=== PATIENT | female | born 1985 | race Caucasian/White ===

== ENCOUNTER 2024-04-16 10:30 | Outpatient (RCR) | payer OTHER, SELFPAY ==
--- NOTE | 2023-12-19 17:46 | PT.OIE ---
Current Diagnoses Other specified conditions associated with female genital organs and menstrual cycle (12/19/23) Visit Care Team Role Provider Type Celia Boudreaux MD Attending Provider Non-Staff Family Provider Primary Care Provider Referring Provider Specialty: Medical Address: [address] [place] [address], [id number] Email: Physical Therapy Initial Evaluation PT-OP-A Visit Information Start: 11/28/23 18:14 Freq: Status: Active Protocol: Document 12/19/23 13:05 LRN (Rec: 12/19/23 17:45 LRN [id number]) Out-Patient Physical Therapy Visit Information Visit Information Visit Type Initial Evaluation Visit Start Time 13:05 Visit Stop Time 13:50 Visit Number 12/06 Evaluation Information Evaluation Date 12/19/23 Precautions Precautions Pt reported PF varicosity on R lower abdomen. PT-OP-B Current Condition Start: 11/28/23 18:14 Freq: Status: Active Protocol: Document 12/19/23 13:05 LRN (Rec: 12/19/23 17:45 LRN [id number]) Current Condition History of Current Condition Onset Date 2021 Current Complaints Heaviness/fullness in lower abdomen History of Current Condition Pt has had 3 vaginal births with last one in 2019 with son weighing 8#12 oz. She began to have a feeling of heaviness in her PF and lower abdomen in 2021. Currently, prior to menstration (4-5 days before menstration) she has a sharp pinch in the lower abdomen. Also having pressure pain with certain positions during intercourse, mainly with pt in hands/knees and spouse behind (pressure when fully inserted deep and with in/out movement ), She describes her discomfort as pressure like elephant sittting on her lower abdomen. Running or jumping creates heaviness. Prior Treatments and Tests Pt reported ultrasound imaging from [facility] showed varicose veins in outside of vaginal canal in R lower quadrant. Developmental History Developmental History 3 vaginal births (2011, 2014, 2018), Cervical conization in 2008 - negative for infection. Treatment Goals Patient/Caregiver Goals Pt goal is to: Decrease/relieve pressure pain with menstration. Decrease/relieve pressure feeling with intercourse. Decrease/relieve sense of heaviness. 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 PT-OP-C Subjective Start: 11/28/23 18:14 Freq: Status: Active Protocol: Document 12/19/23 13:05 LRN (Rec: 12/19/23 17:45 LRN [id number]) Patient Questionnaires Pelvic Pain and Urgency/Frequency Patient Symptom Scale Pelvic Pain Score 6 PT-OP-I Pelvic Floor Start: 11/28/23 18:14 Freq: Status: Active Protocol: Document 12/19/23 13:05 LRN (Rec: 12/19/23 17:45 LRN [id number]) Pelvic Floor Assessment Urine Other Urinary Symptoms No urinary symptoms Bowel Other Bowel Symptoms Normal Bowels. Pelvic Clock Pelvic Clock 12-3 Tenderness,Tightness Pelvic Clock 3-6 Tenderness,Tightness Pelvic Clock Other Tender at 8-10 O'Clock. Prolapse Prolapse Comments Not able to visualize due to pt on period during evaluation . Perineal Descent Resting Present Bearing Absent Contraction Ability Manual Muscle Testing Left 3 Manual Muscle Testing Right 3 Manual Muscle Testing Anterior 3 Manual Muscle Testing Posterior 2 Muscle Endurance (Seconds) 10 Number of Quick Contractions In 10 4 Seconds Comments Pelvic Floor Comments Pt not able to let go of PF contraction. Abdominal tihgtness and pain at R side of uterus and lower R abdomen. PT-OP-J Posture/Palpation/Skin Start: 11/28/23 18:14 Freq: Status: Active Protocol: Document 12/19/23 13:05 LRN (Rec: 12/19/23 17:45 LRN [id number]) Posture Evaluation Position Standing L-Spine Posture Increased Lordosis,Shifted Right Shoulder Posture (L) Forward,(R) Forward,(L) Elevated Pelvis Posture (R) Rotated Posterior Comments Posture Comments Decrease thoracic curve, neutral pelvis, C-curve with apex on R at mid thoracic level. PT-OP-K Range of Motion Start: 11/28/23 18:14 Freq: Status: Active Protocol: Document 12/19/23 13:05 LRN (Rec: 12/19/23 17:45 LRN [id number]) Lumbar Spine Range of Motion Lumbar Spine Active Degrees Testing Position Standing Flexion 83 Extension 5 Rotation Left 30 Rotation Right 40 Lateral Flexion Left 13 Lateral Flexion Right 10 Comments Trunk AROM: Flexion is 83 deg ?s with 50 deg?s hip flexion, Trunk extension is 5 deg?s with 10 deg?s hip extension. Hip Goniometric Range of Motion Hip Right Passive Internal Rotation 35 External Rotation 65 Comments Mildy + Asa Test Left Passive Internal Rotation 25 External Rotation 50 Comments + Asa test PT-OP-M Strength Start: 11/28/23 18:14 Freq: Status: Active Protocol: Document 12/19/23 13:05 LRN (Rec: 12/19/23 17:45 LRN [id number]) Trunk Strength Trunk Manual Muscle Testing Core Stabilization Decreased core stability with MMT of hips, worse with flex/ ext testing. Hip Strength Hip Manual Muscle Testing Right Comments Strength is 5/5 Left External Rotation 3+ Fair+ Comments Strength is 5/5 except as indicated above. PT-OP-Q Treatments Start: 11/28/23 18:14 Freq: Status: Active Protocol: Document 12/19/23 13:05 LRN (Rec: 12/19/23 17:45 LRN [id number]) Self-Care/Home Management Treatment Education Other Education Discussed results of evaluation, goals, and plan of care (POC). Pt agreeable to goals and POC. PT-OP-T Assessment and Plan Start: 11/28/23 18:14 Freq: Status: Active Protocol: Document 12/19/23 13:05 LRN (Rec: 12/19/23 17:45 LRN [id number]) Physical Therapy Assessment Rehab Potential Rehabilitation Potential Good Evaluation Complexity Number of Personal Factors/Comorbidities 1-2 Number of Body Systems Impaired 4 or More Clinical Presentation at Evaluation Evolving Impairments Impairments Activity Tolerance,Edema,Pain, ROM,Soft Tissue Mobility, Strength,Transfers Goals Three Impairment Pressure pain prior to menstration and with intercourse. Short Term Goal (STG) Pt will be educated in modified positioning to help decrease/relieve pressure feeling with intercourse. STG Duration 4 wks-01/16/24 [facility] Goal (LTG) Improve abdominal mobility to decrease/relieve pressure pain with menstration. LTG Duration 8 wks-02/13/24 Two Impairment Feeling of heaviness in PF Short Term Goal (STG) Pt will be educated in core pressure management with transfers, ADLs and exercise. STG Duration 4 wks-01/16/24 [facility] Goal (LTG) Decrease/relieve sense of heaviness from 2/10 to 0-1/10. LTG Duration 8 wks-02/13/24 One Impairment Lacks appropriate HEP Short Term Goal (STG) Pt will be educated in HEP: thoracic mob ex's and abdominal stretching. STG Duration 4 wks-01/16/24 [facility] Goal (LTG) Pt will be independent in a self care HEP of PF/hip stretches and self STM. LTG Duration 8 wks-02/13/24 Assessment Summary Assessment Pt is a 38 yo female who presents with lower abdominal and PF pressure pain, possible pelvic congestion. Pain present with premenstration and with intercourse in hands/ knees position. She has had a Cervical conization in 2008 and her pain with palpation is in this area; therefore scar tissue may be a factor in her pain and onset of heaviness in the lower abdomen. She is tight and tender in PF at 3 O' clock and 8-10 O'clock, and has tight L hip (IF/ER/flexors ) and trunk rot/flex. There is a mechanical changes of the lumbar and thoracic spine. She is not able to relax her PF quickly; therefore EMG biofeedback may be helpful to decrease PF tone and improve circulation. The pt will benefit from skilled physical therapy to achieve the above stated goals. Physical Therapy Plan Frequency and Duration Frequency of Treatment 1x/Week Duration of treatment (weeks) 8 Plan of Care Start Date 12/19/23 Plan of Care End Date 02/13/24 Therapeutic Interventions Therapeutic Interventions Home Exercise Program,Joint Mobilizations,Manual Therapy, Self-Care/Home Management,Soft Tissue Mobilization,Taping, Therapeutic Activities, Therapeutic Exercises Modalities Biofeedback,Electric Stimulation Next Visit Focus/Plan Next Note Type Treatment Note Next Visit Plan (Caution: Possble PF Varicosity on R lower abdomen) Next: Assess prolapse when able to visualize. Vemg biofeedback assessment and possible stim to improve circulation and reduce pressure. Pt to start ex ( walking program). Manual: PF, Abdomen and lower abdomen, Hips (IR L>R), Uterus/Bladder, Mob & self mob for R posture rotated innominate dysfunction. Educ: Coordination of breath with transfer/ADLs, ?self stretching of PF, hot/cold pain management. Ex: Deep Breathing, Stretches hip/abdomen, PF
--- NOTE | 2023-12-19 17:47 | PT.OPPOC ---
Physical, Occupational & Speech Therapy At [facility] Current Diagnoses Other specified conditions associated with female genital organs and menstrual cycle (12/19/23) Visit Care Team Role Provider Type Celia Boudreaux MD Attending Provider Non-Staff Family Provider Primary Care Provider Referring Provider Specialty: Medical Address: [address] [place] [address], [id number] Email: Plan Of Care PT-OP-T Assessment and Plan Start: 11/28/23 18:14 Freq: Status: Active Protocol: Document 12/19/23 13:05 LRN (Rec: 12/19/23 17:45 LRN [id number]) Physical Therapy Assessment Rehab Potential Rehabilitation Potential Good Evaluation Complexity Number of Personal Factors/Comorbidities 1-2 Number of Body Systems Impaired 4 or More Clinical Presentation at Evaluation Evolving Impairments Impairments Activity Tolerance,Edema,Pain, ROM,Soft Tissue Mobility, Strength,Transfers Goals Three Impairment Pressure pain prior to menstration and with intercourse. Short Term Goal (STG) Pt will be educated in modified positioning to help decrease/relieve pressure feeling with intercourse. 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 LTG Duration 8 wks-02/13/24 Two Impairment Feeling of heaviness in PF Short Term Goal (STG) Pt will be educated in core pressure management with transfers, ADLs and exercise. STG Duration 4 wks-01/16/24 Automotive Specialty Technician Goal (LTG) Decrease/relieve sense of heaviness from 2/10 to 0-1/10. LTG Duration 8 wks-02/13/24 One Impairment Lacks appropriate HEP Short Term Goal (STG) Pt will be educated in HEP: thoracic mob ex's and abdominal stretching. STG Duration 4 wks-01/16/24 Jail Goal (LTG) Pt will be independent in a self care HEP of PF/hip stretches and self STM. LTG Duration 8 wks-02/13/24 Assessment Summary Assessment Pt is a 38 yo female who presents with lower abdominal and PF pressure pain, possible pelvic congestion. Pain present with premenstration and with intercourse in hands/ knees position. She has had a Cervical conization in 2008 and her pain with palpation is in this area; therefore scar tissue may be a factor in her pain and onset of heaviness in the lower abdomen. She is tight and tender in PF at 3 O' clock and 8-10 O'clock, and has tight L hip (IF/ER/flexors ) and trunk rot/flex. There is a mechanical changes of the lumbar and thoracic spine. She is not able to relax her PF quickly; therefore EMG biofeedback may be helpful to decrease PF tone and improve circulation. The pt will benefit from skilled physical therapy to achieve the above stated goals. Physical Therapy Plan Frequency and Duration Frequency of Treatment 1x/Week Duration of treatment (weeks) 8 Plan of Care Start Date 12/19/23 Plan of Care End Date 02/13/24 Therapeutic Interventions Therapeutic Interventions Home Exercise Program,Joint Mobilizations,Manual Therapy, Self-Care/Home Management,Soft Tissue Mobilization,Taping, Therapeutic Activities, Therapeutic Exercises Modalities Biofeedback,Electric Stimulation Next Visit Focus/Plan Next Note Type Treatment Note Next Visit Plan (Caution: Possble PF Varicosity on R lower abdomen) Next: Assess prolapse when able to visualize. Vemg biofeedback assessment and possible stim to improve circulation and reduce pressure. Pt to start ex ( walking program). Manual: PF, Abdomen and lower abdomen, Hips (IR L>R), Uterus/Bladder, Mob & self mob for R posture rotated innominate dysfunction. Educ: Coordination of breath with transfer/ADLs, ?self stretching of PF, hot/cold pain management. Ex: Deep Breathing, Stretches hip/abdomen, PF Plan of Care Dates Plan of Care Start Date 12/19/23 Plan of Care End Date 02/13/24 Electronically Signed by: Norma Hurtado, PT 12/19/23 2526 If you are in agreement with this Plan of Care, please return a signed and dated copy. I have reviewed this Plan of Care and certify that the skilled therapy services above are required to meet the patient?s needs. Physician Signature Date Printed Name and Credentials Clinical Instructor Signature Printed Name and Credentials
--- NOTE | 2023-12-26 13:24 | PT.OTN ---
Current Diagnoses Other specified conditions associated with female genital organs and menstrual cycle (12/26/23) Physical Therapy Treatment Note PT-OP-A Visit Information Start: 11/28/23 18:14 Freq: Status: Active Protocol: Document 12/26/23 09:05 LRN (Rec: 12/26/23 09:49 LRN [id number]) Out-Patient Physical Therapy Visit Information Visit Information Visit Type Treatment Note Visit Start Time 09:05 Visit Stop Time 09:43 Visit Number 01/06 Evaluation Information Evaluation Date 12/19/23 Precautions Precautions Pt reported PF varicosity on R lower abdomen. PT-OP-B Current Condition Start: 11/28/23 18:14 Freq: Status: Active Protocol: Document 12/19/23 13:05 LRN (Rec: 12/19/23 17:45 LRN [id number]) Current Condition History of Current Condition Onset Date 2021 Current Complaints Heaviness/fullness in lower abdomen History of Current Condition Pt has had 3 vaginal births with last one in 2019 with son weighing 8#12 oz. She began to have a feeling of heaviness in her PF and lower abdomen in 2021. Currently, prior to menstration (4-5 days before menstration) she has a sharp pinch in the lower abdomen. Also having pressure pain with certain positions during intercourse, mainly with pt in hands/knees and spouse behind (pressure when fully inserted deep and with in/out movement ), She describes her discomfort as pressure like elephant sittting on her lower abdomen. Running or jumping creates heaviness. Prior Treatments and Tests Pt reported ultrasound imaging from [facility] showed varicose veins in outside of vaginal canal in R lower quadrant. Developmental History Developmental History 3 vaginal births (2011, 2014, 2018), Cervical conization in 2008 - negative for infection. Treatment Goals Patient/Caregiver Goals Pt goal is to: Decrease/relieve pressure pain with menstration. Decrease/relieve pressure feeling with intercourse. Decrease/relieve sense of heaviness. 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 PT-OP-C Subjective Start: 11/28/23 18:14 Freq: Status: Active Protocol: Document 12/26/23 09:05 LRN (Rec: 12/26/23 09:49 LRN [id number]) OP-PT Subjective Patient Comments Patient Comments Has noticed weak on L side with lunges and squats and compensates to keep from falling over. PT-OP-I Pelvic Floor Start: 11/28/23 18:14 Freq: Status: Active Protocol: Document 12/26/23 09:05 LRN (Rec: 12/26/23 09:49 LRN [id number]) Pelvic Floor Assessment SEMG (uV) Baseline 2.5 Quick Contraction 12.2 10 Second Contraction 8.8 Recruitment Pattern Good Relaxation Poor/Slow Holding Poor/Slow Stability of Hold Poor/Slow SEMG Stability of Rest Good Comments Pelvic Floor Comments Pt has grade 2 cystocele with drop of urethra. Quick Flicks: 10 reps strength (uV's): avg work 12.2, avg rest 8.8. 20 reps strength (uV's): avg work 12.6, avg rest 9.0. Long Holds: 15 reps strength (uV's): avg work 8.8, avg rest 3.1. 20 reps strength (uV's): avg work 8.5, avg rest 2.9. PT-OP-J Posture/Palpation/Skin Start: 11/28/23 18:14 Freq: Status: Active Protocol: Document 12/19/23 13:05 LRN (Rec: 12/19/23 17:45 LRN [id number]) Posture Evaluation Position Standing L-Spine Posture Increased Lordosis,Shifted Right Shoulder Posture (L) Forward,(R) Forward,(L) Elevated Pelvis Posture (R) Rotated Posterior Comments Posture Comments Decrease thoracic curve, neutral pelvis, C-curve with apex on R at mid thoracic level. PT-OP-K Range of Motion Start: 11/28/23 18:14 Freq: Status: Active Protocol: Document 12/19/23 13:05 LRN (Rec: 12/19/23 17:45 LRN [id number]) Lumbar Spine Range of Motion Lumbar Spine Active Degrees Testing Position Standing Flexion 83 Extension 5 Rotation Left 30 Rotation Right 40 Lateral Flexion Left 13 Lateral Flexion Right 10 Comments Trunk AROM: Flexion is 83 deg ?s with 50 deg?s hip flexion, Trunk extension is 5 deg?s with 10 deg?s hip extension. Hip Goniometric Range of Motion Hip Right Passive Internal Rotation 35 External Rotation 65 Comments Mildy + Asa Test Left Passive Internal Rotation 25 External Rotation 50 Comments + Asa test PT-OP-M Strength Start: 11/28/23 18:14 Freq: Status: Active Protocol: Document 12/19/23 13:05 LRN (Rec: 12/19/23 17:45 LRN [id number]) Trunk Strength Trunk Manual Muscle Testing Core Stabilization Decreased core stability with MMT of hips, worse with flex/ ext testing. Hip Strength Hip Manual Muscle Testing Right Comments Strength is 5/5 Left External Rotation 3+ Fair+ Comments Strength is 5/5 except as indicated above. PT-OP-Q Treatments Start: 11/28/23 18:14 Freq: Status: Active Protocol: Document 12/26/23 09:05 LRN (Rec: 12/26/23 09:49 LRN [id number]) Therapeutic Exercises Supine Exercises PF 10 SH contractions Supine Exercise Name 10 SH Long hold contraction Comments See PF assessment. Cued pt as to her hold time and relax time. PF Quick Contractions Supine Exercise Name 2 SH Quick Contractions Comments See PF assessment Cued pt as to her hold time and relax time. PF at rest Supine Exercise Name PF @ rest Comments Extra time taken for relaxation. See PF assessment Self-Care/Home Management Treatment Education Patient Education Home Exercise Program Other Education Briefly discussed benefit of PF strengthening with intercourse, but she will need stretching of PF first to make it more comfortable during activity. Activities Self-Care/Home Management Activities Issued & reviewed HEP: Aquilesgels Long holds, also Quick Flicks and Aggrevators. PT-OP-T Assessment and Plan Start: 11/28/23 18:14 Freq: Status: Active Protocol: Document 12/26/23 09:05 LRN (Rec: 12/26/23 09:49 LRN [id number]) Physical Therapy Assessment Goals Three Impairment Pressure pain prior to menstration and with intercourse. Short Term Goal (STG) Pt will be educated in modified positioning to help decrease/relieve pressure feeling with intercourse. 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 LTG Duration 8 wks-02/13/24 Two Impairment Feeling of heaviness in PF Short Term Goal (STG) Pt will be educated in core pressure management with transfers, ADLs and exercise. STG Duration 4 wks-01/16/24 Custodial Goal (LTG) Decrease/relieve sense of heaviness from 2/10 to 0-1/10. LTG Duration 8 wks-02/13/24 One Impairment Lacks appropriate HEP Short Term Goal (STG) Pt will be educated in HEP: thoracic mob ex's and abdominal stretching. STG Duration 4 wks-01/16/24 Custodial Goal (LTG) Pt will be independent in a self care HEP of PF/hip stretches and self STM. 12/26/23: HEP: KEgels: focus on long hold and relaxation LTG Duration 8 wks-02/13/24 progressed 01/17 Assessment Summary Assessment 38 yo female who presents with lower abdominal and PF pressure pain, possible pelvic congestion. Pain present with premenstration and with intercourse in hands/knees position. She has grade 2 cystocele with drop of urethra . Quick contractions she has high resting tone. Long holds shows decreased endurance after 2nd contraction. Physical Therapy Plan Frequency and Duration Frequency of Treatment 1x/Week Duration of treatment (weeks) 8 Plan of Care Start Date 12/19/23 Plan of Care End Date 02/13/24 Next Visit Focus/Plan Next Note Type Treatment Note Next Visit Plan (Caution: Possble PF Varicosity on R lower abdomen) Next: Vemg possible to improve circulation and reduce pressure (no stim), or start long hold strengthening and PF relaxation w/wand stretching for HEP. Pt to start ex ( walking program). Educ: Coordination of breath with transfer/ADLs, ?self stretching of PF, hot/cold pain management. Ex: Deep Breathing, Stretches hip/abdomen, PF Manual: PF, Abdomen and lower abdomen (Caution: Possble PF Varicosity on R lower abdomen ) , Hips (IR L>R), Uterus/ Bladder, Mob & self mob for R posture rotated innominate dysfunction.
--- NOTE | 2024-01-09 15:59 | PT.OTN ---
Current Diagnoses Other specified conditions associated with female genital organs and menstrual cycle (01/09/24) Physical Therapy Treatment Note PT-OP-A Visit Information Start: 11/28/23 18:14 Freq: Status: Active Protocol: Document 01/09/24 09:50 LRN (Rec: 01/09/24 10:31 LRN [id number]) Out-Patient Physical Therapy Visit Information Visit Information Visit Type Treatment Note Visit Start Time 09:50 Visit Stop Time 10:28 Visit Number 3/ Evaluation Information Evaluation Date 12/19/23 Precautions Precautions Pt reported PF varicosity on R lower abdomen. PT-OP-B Current Condition Start: 11/28/23 18:14 Freq: Status: Active Protocol: Document 12/19/23 13:05 LRN (Rec: 12/19/23 17:45 LRN [id number]) Current Condition History of Current Condition Onset Date 2021 Current Complaints Heaviness/fullness in lower abdomen History of Current Condition Pt has had 3 vaginal births with last one in 2019 with son weighing 8#12 oz. She began to have a feeling of heaviness in her PF and lower abdomen in 2021. Currently, prior to menstration (4-5 days before menstration) she has a sharp pinch in the lower abdomen. Also having pressure pain with certain positions during intercourse, mainly with pt in hands/knees and spouse behind (pressure when fully inserted deep and with in/out movement ), She describes her discomfort as pressure like elephant sittting on her lower abdomen. Running or jumping creates heaviness. Prior Treatments and Tests Pt reported ultrasound imaging from [facility] showed varicose veins in outside of vaginal canal in R lower quadrant. Developmental History Developmental History 3 vaginal births (2011, 2014, 2018), Cervical conization in 2008 - negative for infection. Treatment Goals Patient/Caregiver Goals Pt goal is to: Decrease/relieve pressure pain with menstration. Decrease/relieve pressure feeling with intercourse. Decrease/relieve sense of heaviness. 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 PT-OP-C Subjective Start: 11/28/23 18:14 Freq: Status: Active Protocol: Document 01/09/24 09:50 LRN (Rec: 01/09/24 10:31 LRN [id number]) OP-PT Subjective Patient Comments Patient Comments No change PT-OP-I Pelvic Floor Start: 11/28/23 18:14 Freq: Status: Active Protocol: Document 12/26/23 09:05 LRN (Rec: 12/26/23 09:49 LRN [id number]) Pelvic Floor Assessment SEMG (uV) Baseline 2.5 Quick Contraction 12.2 10 Second Contraction 8.8 Recruitment Pattern Good Relaxation Poor/Slow Holding Poor/Slow Stability of Hold Poor/Slow SEMG Stability of Rest Good Comments Pelvic Floor Comments Pt has grade 2 cystocele with drop of urethra. Quick Flicks: 10 reps strength (uV's): avg work 12.2, avg rest 8.8. 20 reps strength (uV's): avg work 12.6, avg rest 9.0. Long Holds: 15 reps strength (uV's): avg work 8.8, avg rest 3.1. 20 reps strength (uV's): avg work 8.5, avg rest 2.9. PT-OP-J Posture/Palpation/Skin Start: 11/28/23 18:14 Freq: Status: Active Protocol: Document 12/19/23 13:05 LRN (Rec: 12/19/23 17:45 LRN [id number]) Posture Evaluation Position Standing L-Spine Posture Increased Lordosis,Shifted Right Shoulder Posture (L) Forward,(R) Forward,(L) Elevated Pelvis Posture (R) Rotated Posterior Comments Posture Comments Decrease thoracic curve, neutral pelvis, C-curve with apex on R at mid thoracic level. PT-OP-K Range of Motion Start: 11/28/23 18:14 Freq: Status: Active Protocol: Document 12/19/23 13:05 LRN (Rec: 12/19/23 17:45 LRN [id number]) Lumbar Spine Range of Motion Lumbar Spine Active Degrees Testing Position Standing Flexion 83 Extension 5 Rotation Left 30 Rotation Right 40 Lateral Flexion Left 13 Lateral Flexion Right 10 Comments Trunk AROM: Flexion is 83 deg ?s with 50 deg?s hip flexion, Trunk extension is 5 deg?s with 10 deg?s hip extension. Hip Goniometric Range of Motion Hip Right Passive Internal Rotation 35 External Rotation 65 Comments Mildy + Asa Test Left Passive Internal Rotation 25 External Rotation 50 Comments + Asa test PT-OP-M Strength Start: 11/28/23 18:14 Freq: Status: Active Protocol: Document 12/19/23 13:05 LRN (Rec: 12/19/23 17:45 LRN [id number]) Trunk Strength Trunk Manual Muscle Testing Core Stabilization Decreased core stability with MMT of hips, worse with flex/ ext testing. Hip Strength Hip Manual Muscle Testing Right Comments Strength is 5/5 Left External Rotation 3+ Fair+ Comments Strength is 5/5 except as indicated above. PT-OP-Q Treatments Start: 11/28/23 18:14 Freq: Status: Active Protocol: Document 01/09/24 09:50 LRN (Rec: 01/09/24 10:31 LRN [id number]) Therapeutic Exercises Supine Exercises PF 10 SH contractions Supine Exercise Name 10 SH Long hold contraction Reps/Minutes 11 Comments See PF assessment. Cued pt as to her hold time and relax time. PF Quick Contractions Supine Exercise Name 2 SH Quick Contractions Reps/Minutes 7' Comments See PF assessment Cued pt as to her hold time and relax time. PF at rest Supine Exercise Name PF @ rest Reps/Minutes 5' Comments Extra time taken for relaxation. See PF assessment Neuro Re-Education Treatment Other Activities Vemg Aquilesgels Details 10 SH long hold re-ed Reps/Duration 15' Comments Visual and verbal feedback for maintaining PF hold and getting quick relaxation after contraction. PT-OP-T Assessment and Plan Start: 11/28/23 18:14 Freq: Status: Active Protocol: Document 01/09/24 09:50 LRN (Rec: 01/09/24 10:31 LRN [id number]) Physical Therapy Assessment Goals Three Impairment Pressure pain prior to menstration and with intercourse. Short Term Goal (STG) Pt will be educated in modified positioning to help decrease/relieve pressure feeling with intercourse. STG Duration 4 wks-01/16/24 Data Abstractor Goal (LTG) Improve abdominal mobility to decrease/relieve pressure pain with menstration. LTG Duration 8 wks-02/13/24 Two Impairment Feeling of heaviness in PF Short Term Goal (STG) Pt will be educated in core pressure management with transfers, ADLs and exercise. STG Duration 4 wks-01/16/24 Data Abstractor Goal (LTG) Decrease/relieve sense of heaviness from 2/10 to 0-1/10. LTG Duration 8 wks-02/13/24 One Impairment Lacks appropriate HEP Short Term Goal (STG) Pt will be educated in HEP: thoracic mob ex's and abdominal stretching. STG Duration 4 wks-01/16/24 Nursing Home Goal (LTG) Pt will be independent in a self care HEP of PF/hip stretches and self STM. 12/26/23: HEP: KEgels: focus on long hold and relaxation LTG Duration 8 wks-02/13/24 progressed 01/17 Assessment Summary Assessment 38 yo female with lower abdominal and PF pressure pain , possible pelvic congestion. Pain present with premenstration and with intercourse (specifically hands/knees). She has grade 2 cystocele with drop of urethra. Per Vemg neuro-allyn, pt able to perform a slow long hold contraction with weakening after 5 secs, and by 20 reps not able to hold 2 secs; initial forceful contraction is not able to hold for 2 secs. Pt is getting a low resting tone at end of 2.3uV's after 20 reps. Physical Therapy Plan Frequency and Duration Frequency of Treatment 1x/Week Duration of treatment (weeks) 8 Plan of Care Start Date 12/19/23 Plan of Care End Date 02/13/24 Next Visit Focus/Plan Next Note Type Treatment Note Next Visit Plan (Caution: Possble PF Varicosity on R lower abdomen) Next: No Stim, only Neuro- allyn: Vemg possible to improve circulation and reduce pressure, or start long hold strengthening and PF relaxation w/wand stretching for HEP. Pt to start ex ( walking program). Educ: Core pressure mgmt w/ coordination of breath with transfer/ADLs, ?self stretching of PF, hot/cold pain management. Ex: HEP: thoracic mob ex's and abdominal stretching, Deep Breathing, Stretches hip/ abdomen, PF. Manual: PF, Abdomen and lower abdomen (Caution: Possble PF Varicosity on R lower abdomen ) , Hips (IR L>R), Uterus/ Bladder, Mob & self mob for R posture rotated innominate dysfunction.
--- NOTE | 2024-01-09 16:03 | PT.OTN ---
Current Diagnoses Other specified conditions associated with female genital organs and menstrual cycle (01/09/24) Physical Therapy Treatment Note PT-OP-A Visit Information Start: 11/28/23 18:14 Freq: Status: Active Protocol: Document 01/09/24 09:50 LRN (Rec: 01/09/24 10:31 LRN [id number]) Out-Patient Physical Therapy Visit Information Visit Information Visit Type Treatment Note Visit Start Time 09:50 Visit Stop Time 10:28 Visit Number 3/ Evaluation Information Evaluation Date 12/19/23 Precautions Precautions Pt reported PF varicosity on R lower abdomen. PT-OP-B Current Condition Start: 11/28/23 18:14 Freq: Status: Active Protocol: Document 12/19/23 13:05 LRN (Rec: 12/19/23 17:45 LRN [id number]) Current Condition History of Current Condition Onset Date 2021 Current Complaints Heaviness/fullness in lower abdomen History of Current Condition Pt has had 3 vaginal births with last one in 2019 with son weighing 8#12 oz. She began to have a feeling of heaviness in her PF and lower abdomen in 2021. Currently, prior to menstration (4-5 days before menstration) she has a sharp pinch in the lower abdomen. Also having pressure pain with certain positions during intercourse, mainly with pt in hands/knees and spouse behind (pressure when fully inserted deep and with in/out movement ), She describes her discomfort as pressure like elephant sittting on her lower abdomen. Running or jumping creates heaviness. Prior Treatments and Tests Pt reported ultrasound imaging from [facility] showed varicose veins in outside of vaginal canal in R lower quadrant. Developmental History Developmental History 3 vaginal births (2011, 2014, 2018), Cervical conization in 2008 - negative for infection. Treatment Goals Patient/Caregiver Goals Pt goal is to: Decrease/relieve pressure pain with menstration. Decrease/relieve pressure feeling with intercourse. Decrease/relieve sense of heaviness. 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 PT-OP-C Subjective Start: 11/28/23 18:14 Freq: Status: Active Protocol: Document 01/09/24 09:50 LRN (Rec: 01/09/24 10:31 LRN [id number]) OP-PT Subjective Patient Comments Patient Comments No change PT-OP-I Pelvic Floor Start: 11/28/23 18:14 Freq: Status: Active Protocol: Document 01/09/24 09:50 LRN (Rec: 01/09/24 16:03 LRN [id number]) Pelvic Floor Assessment SEMG (uV) Baseline 1.6 Quick Contraction 10.5 10 Second Contraction 9.1 Recruitment Pattern Good Relaxation Fair Holding Fair Stability of Hold Fair SEMG Stability of Rest Fair Comments Pelvic Floor Comments Quick Flicks: 10 reps strength (uV's): avg work 10.5, avg rest 7.1. 20 reps strength (uV's): avg work 10.1, avg rest 9.2. Long Holds: 10 reps strength (uV's): avg work 9.1, avg rest 2.7. 20 reps strength (uV's): avg work 8.9, avg rest 2.3. PT-OP-J Posture/Palpation/Skin Start: 11/28/23 18:14 Freq: Status: Active Protocol: Document 12/19/23 13:05 LRN (Rec: 12/19/23 17:45 LRN [id number]) Posture Evaluation Position Standing L-Spine Posture Increased Lordosis,Shifted Right Shoulder Posture (L) Forward,(R) Forward,(L) Elevated Pelvis Posture (R) Rotated Posterior Comments Posture Comments Decrease thoracic curve, neutral pelvis, C-curve with apex on R at mid thoracic level. PT-OP-K Range of Motion Start: 11/28/23 18:14 Freq: Status: Active Protocol: Document 12/19/23 13:05 LRN (Rec: 12/19/23 17:45 LRN [id number]) Lumbar Spine Range of Motion Lumbar Spine Active Degrees Testing Position Standing Flexion 83 Extension 5 Rotation Left 30 Rotation Right 40 Lateral Flexion Left 13 Lateral Flexion Right 10 Comments Trunk AROM: Flexion is 83 deg ?s with 50 deg?s hip flexion, Trunk extension is 5 deg?s with 10 deg?s hip extension. Hip Goniometric Range of Motion Hip Right Passive Internal Rotation 35 External Rotation 65 Comments Mildy + Asa Test Left Passive Internal Rotation 25 External Rotation 50 Comments + Asa test PT-OP-M Strength Start: 11/28/23 18:14 Freq: Status: Active Protocol: Document 12/19/23 13:05 LRN (Rec: 12/19/23 17:45 LRN [id number]) Trunk Strength Trunk Manual Muscle Testing Core Stabilization Decreased core stability with MMT of hips, worse with flex/ ext testing. Hip Strength Hip Manual Muscle Testing Right Comments Strength is 5/5 Left External Rotation 3+ Fair+ Comments Strength is 5/5 except as indicated above. PT-OP-Q Treatments Start: 11/28/23 18:14 Freq: Status: Active Protocol: Document 01/09/24 09:50 LRN (Rec: 01/09/24 10:31 LRN [id number]) Therapeutic Exercises Supine Exercises PF 10 SH contractions Supine Exercise Name 10 SH Long hold contraction Reps/Minutes 11 Comments See PF assessment. Cued pt as to her hold time and relax time. PF Quick Contractions Supine Exercise Name 2 SH Quick Contractions Reps/Minutes 7' Comments See PF assessment Cued pt as to her hold time and relax time. PF at rest Supine Exercise Name PF @ rest Reps/Minutes 5' Comments Extra time taken for relaxation. See PF assessment Neuro Re-Education Treatment Other Activities Yon Kasper Details 10 SH long hold re-ed Reps/Duration 15' Comments Visual and verbal feedback for maintaining PF hold and getting quick relaxation after contraction. PT-OP-T Assessment and Plan Start: 11/28/23 18:14 Freq: Status: Active Protocol: Document 01/09/24 09:50 LRN (Rec: 01/09/24 10:31 LRN [id number]) Physical Therapy Assessment Goals Three Impairment Pressure pain prior to menstration and with intercourse. Short Term Goal (STG) Pt will be educated in modified positioning to help decrease/relieve pressure feeling with intercourse. STG Duration 4 wks-01/16/24 Detention Goal (LTG) Improve abdominal mobility to decrease/relieve pressure pain with menstration. LTG Duration 8 wks-02/13/24 Two Impairment Feeling of heaviness in PF Short Term Goal (STG) Pt will be educated in core pressure management with transfers, ADLs and exercise. STG Duration 4 wks-01/16/24 Software Asset Management Analyst Goal (LTG) Decrease/relieve sense of heaviness from 2/10 to 0-1/10. LTG Duration 8 wks-02/13/24 One Impairment Lacks appropriate HEP Short Term Goal (STG) Pt will be educated in HEP: thoracic mob ex's and abdominal stretching. STG Duration 4 wks-01/16/24 Software Asset Management Analyst Goal (LTG) Pt will be independent in a self care HEP of PF/hip stretches and self STM. 12/26/23: HEP: KEgels: focus on long hold and relaxation LTG Duration 8 wks-02/13/24 progressed 01/17 Assessment Summary Assessment 38 yo female with lower abdominal and PF pressure pain , possible pelvic congestion. Pain present with premenstration and with intercourse (specifically hands/knees). She has grade 2 cystocele with drop of urethra. Per Vemg neuro-allyn, pt able to perform a slow long hold contraction with weakening after 5 secs, and by 20 reps not able to hold 2 secs; initial forceful contraction is not able to hold for 2 secs. Pt is getting a low resting tone at end of 2.3uV's after 20 reps. Physical Therapy Plan Frequency and Duration Frequency of Treatment 1x/Week Duration of treatment (weeks) 8 Plan of Care Start Date 12/19/23 Plan of Care End Date 02/13/24 Next Visit Focus/Plan Next Note Type Treatment Note Next Visit Plan (Caution: Possble PF Varicosity on R lower abdomen) Next: No Stim, only Neuro- allyn: Vemg possible to improve circulation and reduce pressure, or start long hold strengthening and PF relaxation w/wand stretching for HEP. Pt to start ex ( walking program). Educ: Core pressure mgmt w/ coordination of breath with transfer/ADLs, ?self stretching of PF, hot/cold pain management. Ex: HEP: thoracic mob ex's and abdominal stretching, Deep Breathing, Stretches hip/ abdomen, PF. Manual: PF, Abdomen and lower abdomen (Caution: Possble PF Varicosity on R lower abdomen ) , Hips (IR L>R), Uterus/ Bladder, Mob & self mob for R posture rotated innominate dysfunction.
--- NOTE | 2024-01-16 07:27 | PT-OP ANOTE ---
CX same day due to sick son.
--- NOTE | 2024-02-12 13:13 | PT-OP ANOTE ---
Per phone, pt notified of [employer] auth 02/04/24. Pt report she is in process of updating the referral and will call PT as soon as she can get new new PT auth. Pt states she is continuing to do her exercises.
--- NOTE | 2024-02-26 15:46 | PT.OTN ---
Current Diagnoses Other specified conditions associated with female genital organs and menstrual cycle (02/26/24) Physical Therapy Treatment Note PT-OP-A Visit Information Start: 11/28/23 18:14 Freq: Status: Active Protocol: Document 02/26/24 11:16 LRN (Rec: 02/26/24 12:11 LRN [id number]) Out-Patient Physical Therapy Visit Information Visit Information Visit Type Treatment Note Visit Start Time 11:16 Visit Stop Time 12:04 Visit Number 4 Evaluation Information Evaluation Date 12/19/23 Precautions Precautions Pt reported PF varicosity on R lower abdomen. PT-OP-B Current Condition Start: 11/28/23 18:14 Freq: Status: Active Protocol: Document 12/19/23 13:05 LRN (Rec: 12/19/23 17:45 LRN [id number]) Current Condition History of Current Condition Onset Date 2021 Current Complaints Heaviness/fullness in lower abdomen History of Current Condition Pt has had 3 vaginal births with last one in 2019 with son weighing 8#12 oz. She began to have a feeling of heaviness in her PF and lower abdomen in 2021. Currently, prior to menstration (4-5 days before menstration) she has a sharp pinch in the lower abdomen. Also having pressure pain with certain positions during intercourse, mainly with pt in hands/knees and spouse behind (pressure when fully inserted deep and with in/out movement ), She describes her discomfort as pressure like elephant sittting on her lower abdomen. Running or jumping creates heaviness. Prior Treatments and Tests Pt reported ultrasound imaging from [facility] showed varicose veins in outside of vaginal canal in R lower quadrant. Developmental History Developmental History 3 vaginal births (2011, 2014, 2018), Cervical conization in 2008 - negative for infection. Treatment Goals Patient/Caregiver Goals Pt goal is to: Decrease/relieve pressure pain with menstration. Decrease/relieve pressure feeling with intercourse. Decrease/relieve sense of heaviness. 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 PT-OP-C Subjective Start: 11/28/23 18:14 Freq: Status: Active Protocol: Document 02/26/24 11:16 LRN (Rec: 02/26/24 12:11 LRN [id number]) OP-PT Subjective Patient Comments Patient Comments Trying to do ex's, doesn't feel as tight and practicing stopping while peeing, and hasn't been leaking. With sex , hasnt had pain and when on top of spouse, has had pressure in the lower abdomen. States she leaks urine with coughing or laughing fits. PT-OP-I Pelvic Floor Start: 11/28/23 18:14 Freq: Status: Active Protocol: Document 01/09/24 09:50 LRN (Rec: 01/09/24 16:03 LRN [id number]) Pelvic Floor Assessment SEMG (uV) Baseline 1.6 Quick Contraction 10.5 10 Second Contraction 9.1 Recruitment Pattern Good Relaxation Fair Holding Fair Stability of Hold Fair SEMG Stability of Rest Fair Comments Pelvic Floor Comments Quick Flicks: 10 reps strength (uV's): avg work 10.5, avg rest 7.1. 20 reps strength (uV's): avg work 10.1, avg rest 9.2. Long Holds: 10 reps strength (uV's): avg work 9.1, avg rest 2.7. 20 reps strength (uV's): avg work 8.9, avg rest 2.3. PT-OP-J Posture/Palpation/Skin Start: 11/28/23 18:14 Freq: Status: Active Protocol: Document 12/19/23 13:05 LRN (Rec: 12/19/23 17:45 LRN [id number]) Posture Evaluation Position Standing L-Spine Posture Increased Lordosis,Shifted Right Shoulder Posture (L) Forward,(R) Forward,(L) Elevated Pelvis Posture (R) Rotated Posterior Comments Posture Comments Decrease thoracic curve, neutral pelvis, C-curve with apex on R at mid thoracic level. PT-OP-K Range of Motion Start: 11/28/23 18:14 Freq: Status: Active Protocol: Document 12/19/23 13:05 LRN (Rec: 12/19/23 17:45 LRN [id number]) Lumbar Spine Range of Motion Lumbar Spine Active Degrees Testing Position Standing Flexion 83 Extension 5 Rotation Left 30 Rotation Right 40 Lateral Flexion Left 13 Lateral Flexion Right 10 Comments Trunk AROM: Flexion is 83 deg ?s with 50 deg?s hip flexion, Trunk extension is 5 deg?s with 10 deg?s hip extension. Hip Goniometric Range of Motion Hip Right Passive Internal Rotation 35 External Rotation 65 Comments Mildy + Asa Test Left Passive Internal Rotation 25 External Rotation 50 Comments + Asa test PT-OP-M Strength Start: 11/28/23 18:14 Freq: Status: Active Protocol: Document 12/19/23 13:05 LRN (Rec: 12/19/23 17:45 LRN [id number]) Trunk Strength Trunk Manual Muscle Testing Core Stabilization Decreased core stability with MMT of hips, worse with flex/ ext testing. Hip Strength Hip Manual Muscle Testing Right Comments Strength is 5/5 Left External Rotation 3+ Fair+ Comments Strength is 5/5 except as indicated above. PT-OP-Q Treatments Start: 11/28/23 18:14 Freq: Status: Active Protocol: Document 02/26/24 11:16 LRN (Rec: 02/26/24 12:11 LRN [id number]) Therapeutic Exercises Supine Exercises Happy Baby Pose Reps/Minutes 3' Comments Cued to hold thru 2-3 breaths Prone Exercises ANGELO Prone Exercise Name ANGELO - cued for 2 breath hold. Inhale-PF stretch, Exhale-PF relax Reps/Minutes 6' Comments Extra time taken to determine max tolerated stretch Sidelying Exercises Open Book Side bilateral Reps/Minutes 10' for 2 breath hold Comments Cued to stretch abdomen, keep hand in alignment with head. Other Exercises Child's Pose Other Exercise Name Child's pose for 1) abdominal relaxation, 2) exhale PF contraction. Reps/Minutes 10' Comments Extra time coordinating relaxation with breath & Kegel w/breath Neuro Re-Education Treatment Coordination Activities Transfers w/breathwork Details Ext Reps/Duration 7' Comments Coordinating each transfer mvmt with exhale/Kegel<>inhale /gentle reverse Kegel Self-Care/Home Management Treatment Education Other Education Discussed modification of pre- intercourse activities to include PF stretching and fluid management (void before activity). Activities Self-Care/Home Management Activities Issued & reviewed HEP: Happy Baby pose, Child's Pose, Open book and Sphinx stretch. Issued & reviewed handout for coordination of transfers with breath and PF contractions. Pt encouraged to do walking or other forms of exercise pre- and during menstration. PT-OP-T Assessment and Plan Start: 11/28/23 18:14 Freq: Status: Active Protocol: Document 02/26/24 11:16 LRN (Rec: 02/26/24 12:11 LRJonathan [id number]) Physical Therapy Assessment Rehab Potential Rehabilitation Potential Good Evaluation Complexity Number of Personal Factors/Comorbidities 1-2 Number of Body Systems Impaired 4 or More Clinical Presentation at Evaluation Evolving Impairments Impairments Activity Tolerance,Edema,Pain, ROM,Soft Tissue Mobility, Strength,Transfers Goals Three Impairment Pressure pain prior to menstration and with intercourse. Short Term Goal (STG) Pt will be educated in modified positioning to help decrease/relieve pressure feeling with intercourse. 02/26/24: Pt having pressure in lower abdomen when on top of spouse; therefore recommended pt urinate before intercourse and recommended stretching. STG Duration 4 wks-03/26/24 Roadmaster Goal (LTG) Improve abdominal mobility to decrease/relieve pressure pain with menstration. LTG Duration 11 wks-05/14/24 Two Impairment Feeling of heaviness in PF Short Term Goal (STG) Pt will be educated in core pressure management with transfers, ADLs and exercise. 02/26/24: Pt educated in core pressure management with trnsfers. STG Duration 4 wks-03/26/24 progressed 02/26/24 (need ed for ADLs & ex) Shelter Goal (LTG) Decrease/relieve sense of heaviness from 2/10 to 0-1/10. LTG Duration 11 wks-05/14/24 One Impairment Lacks appropriate HEP Short Term Goal (STG) Pt will be educated in HEP: thoracic mob ex's and abdominal stretching. 02/26/24: HEP issued: Open book (T/S rot) & ANGELO/Sphinx ( abdominal stretching). STG Duration (02/26/24: MET GOAL) Roadmaster Goal (LTG) Pt will be independent in a self care HEP of PF/hip stretches and self STM. 12/26/23: HEP: KEgels: focus on long hold and relaxation. 02/26/24: Pt encouraged to do walking or more ex prior and during period to improve PF circulation. LTG Duration 11 wks-05/14/24 progressed Assessment Summary Assessment Pt is a 38 yo female with lower abdominal and PF pressure pain, possible pelvic congestion. Pt returns after break in rehab of almost 2 months due to pt financial concern over no insurance authorization. Pt returns with new authorization for 12 more visits. She has c/o urinary leakage only with coughing or laughing fits. No pain with intercourse. She has pelvic/lower abdominal pressure when on top of spouse , but may be due to pt waiting to urinate after, vs before intercourse; therefore change in routine needed (urinate before intercourse). We have progressed in pt self care, but pt would benefit from further physical therapy to continue progressing to acheive the above stated goals . Physical Therapy Plan Frequency and Duration Frequency of Treatment 1x/Week Duration of treatment (weeks) 11 Plan of Care Start Date 12/19/23 Plan of Care End Date 05/14/24 Therapeutic Interventions Therapeutic Interventions Home Exercise Program,Joint Mobilizations,Manual Therapy, Self-Care/Home Management,Soft Tissue Mobilization,Taping, Therapeutic Activities, Therapeutic Exercises Modalities Biofeedback,Electric Stimulation Next Visit Focus/Plan Next Note Type Treatment Note Next Visit Plan Caution: Possble PF Varicosity on R lower abdomen) ; therefore No Stim. Next: Educ & Ex (see below) & Neuro-allyn: Vemg biofeedback to improve circulation and reduce pressure with long hold Kegel/PF relaxation Educ: Core pressure mgmt w/ coordination of breath with ADLs. Ex: HEP: thoracic mob ex's ( cat/cow) and abdominal stretching (LTR), Stretches: Deep Breathing, Stretches hip, PF. Self care: ?PF self stretching w/wand, hot/cold pain management. Manual: PF, Abdomen and lower abdomen (Caution: Possble PF Varicosity on R lower abdomen ) , Hips (IR L>R), Uterus/ Bladder, Mob & self mob for R posture rotated innominate dysfunction.
--- NOTE | 2024-02-26 15:48 | PT.OPPOC ---
Physical, Occupational & Speech Therapy At [facility] Current Diagnoses Other specified conditions associated with female genital organs and menstrual cycle (02/26/24) Visit Care Team Role Provider Type Celia Boudreaux MD Attending Provider Non-Staff Family Provider Primary Care Provider Referring Provider Specialty: Medical Address: [address] [place] [address], [id number] Email: Plan Of Care PT-OP-T Assessment and Plan Start: 11/28/23 18:14 Freq: Status: Active Protocol: Document 02/26/24 11:16 LRN (Rec: 02/26/24 12:11 LRN [id number]) Physical Therapy Assessment Rehab Potential Rehabilitation Potential Good Evaluation Complexity Number of Personal Factors/Comorbidities 1-2 Number of Body Systems Impaired 4 or More Clinical Presentation at Evaluation Evolving Impairments Impairments Activity Tolerance,Edema,Pain, ROM,Soft Tissue Mobility, Strength,Transfers Goals Three Impairment Pressure pain prior to menstration and with intercourse. Short Term Goal (STG) Pt will be educated in modified positioning to help decrease/relieve pressure feeling with intercourse. 02/26/24: Pt having pressure in lower abdomen when on top of spouse; therefore recommended pt urinate before intercourse and recommended stretching. STG Duration 4 wks-03/26/24 Fpc Goal (LTG) Improve abdominal mobility to decrease/relieve pressure pain with menstration. LTG Duration 11 wks-05/14/24 Two Impairment Feeling of heaviness in PF Short Term Goal (STG) Pt will be educated in core pressure management with transfers, ADLs and exercise. 02/26/24: Pt educated in core pressure management with trnsfers. STG Duration 4 wks-03/26/24 progressed 02/26/24 (need ed for ADLs & ex) Fpc Goal (LTG) Decrease/relieve sense of heaviness from 2/10 to 0-1/10. LTG Duration 11 wks-05/14/24 One Impairment Lacks appropriate HEP Short Term Goal (STG) Pt will be educated in HEP: thoracic mob ex's and abdominal stretching. 02/26/24: HEP issued: Open book (T/S rot) & ANGELO/Sphinx ( abdominal stretching). STG Duration (02/26/24: MET GOAL) Director Nicu Goal (LTG) Pt will be independent in a self care HEP of PF/hip stretches and self STM. 12/26/23: HEP: KEgels: focus on long hold and relaxation. 02/26/24: Pt encouraged to do walking or more ex prior and during period to improve PF circulation. LTG Duration 11 wks-05/14/24 progressed Assessment Summary Assessment Pt is a 38 yo female with lower abdominal and PF pressure pain, possible pelvic congestion. Pt returns after break in rehab of almost 2 months due to pt financial concern over no insurance authorization. Pt returns with new authorization for 12 more visits. She has c/o urinary leakage only with coughing or laughing fits. No pain with intercourse. She has pelvic/lower abdominal pressure when on top of spouse , but may be due to pt waiting to urinate after, vs before intercourse; therefore change in routine needed (urinate before intercourse). We have progressed in pt self care, but pt would benefit from further physical therapy to continue progressing to acheive the above stated goals . Physical Therapy Plan Frequency and Duration Frequency of Treatment 1x/Week Duration of treatment (weeks) 11 Plan of Care Start Date 12/19/23 Plan of Care End Date 05/14/24 Therapeutic Interventions Therapeutic Interventions Home Exercise Program,Joint Mobilizations,Manual Therapy, Self-Care/Home Management,Soft Tissue Mobilization,Taping, Therapeutic Activities, Therapeutic Exercises Modalities Biofeedback,Electric Stimulation Next Visit Focus/Plan Next Note Type Treatment Note Next Visit Plan Caution: Possble PF Varicosity on R lower abdomen) ; therefore No Stim. Next: Educ & Ex (see below) & Neuro-allyn: Vemg biofeedback to improve circulation and reduce pressure with long hold Kegel/PF relaxation Educ: Core pressure mgmt w/ coordination of breath with ADLs. Ex: HEP: thoracic mob ex's ( cat/cow) and abdominal stretching (LTR), Stretches: Deep Breathing, Stretches hip, PF. Self care: ?PF self stretching w/wand, hot/cold pain management. Manual: PF, Abdomen and lower abdomen (Caution: Possble PF Varicosity on R lower abdomen ) , Hips (IR L>R), Uterus/ Bladder, Mob & self mob for R posture rotated innominate dysfunction. Plan of Care Dates Plan of Care Start Date 12/19/23 Plan of Care End Date 05/14/24 Electronically Signed by: Norma Hurtado, PT 02/26/24 1548 If you are in agreement with this Plan of Care, please return a signed and dated copy. I have reviewed this Plan of Care and certify that the skilled therapy services above are required to meet the patient?s needs. Physician Signature Date Printed Name and Credentials Clinical Instructor Signature Printed Name and Credentials
--- NOTE | 2024-03-12 08:55 | PT.OTN ---
Current Diagnoses Other specified conditions associated with female genital organs and menstrual cycle (03/12/24) Physical Therapy Treatment Note PT-OP-A Visit Information Start: 11/28/23 18:14 Freq: Status: Active Protocol: Document 03/12/24 07:31 LRN (Rec: 03/12/24 08:21 LRN [id number]) Out-Patient Physical Therapy Visit Information Visit Information Visit Type Treatment Note Visit Start Time 07:31 Visit Stop Time 08:20 Visit Number 04/05 Evaluation Information Evaluation Date 12/19/23 Precautions Precautions Pt reported PF varicosity on R lower abdomen during intercourse. PT-OP-B Current Condition Start: 11/28/23 18:14 Freq: Status: Active Protocol: Document 12/19/23 13:05 LRN (Rec: 12/19/23 17:45 LRN [id number]) Current Condition History of Current Condition Onset Date 2021 Current Complaints Heaviness/fullness in lower abdomen History of Current Condition Pt has had 3 vaginal births with last one in 2019 with son weighing 8#12 oz. She began to have a feeling of heaviness in her PF and lower abdomen in 2021. Currently, prior to menstration (4-5 days before menstration) she has a sharp pinch in the lower abdomen. Also having pressure pain with certain positions during intercourse, mainly with pt in hands/knees and spouse behind (pressure when fully inserted deep and with in/out movement ), She describes her discomfort as pressure like elephant sittting on her lower abdomen. Running or jumping creates heaviness. Prior Treatments and Tests Pt reported ultrasound imaging from [facility] showed varicose veins in outside of vaginal canal in R lower quadrant. Developmental History Developmental History 3 vaginal births (2011, 2014, 2018), Cervical conization in 2008 - negative for infection. Treatment Goals Patient/Caregiver Goals Pt goal is to: Decrease/relieve pressure pain with menstration. Decrease/relieve pressure feeling with intercourse. Decrease/relieve sense of heaviness. 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 PT-OP-C Subjective Start: 11/28/23 18:14 Freq: Status: Active Protocol: Document 03/12/24 07:31 LRN (Rec: 03/12/24 08:21 LRN [id number]) OP-PT Subjective Patient Comments Patient Comments No changes. Slight pressure on R quadrant but not as bad. When standing for 30' or greater feels pressure in PF otherwise pressure is in R lower abdomen. PT-OP-I Pelvic Floor Start: 11/28/23 18:14 Freq: Status: Active Protocol: Document 01/09/24 09:50 LRN (Rec: 01/09/24 16:03 LRN [id number]) Pelvic Floor Assessment SEMG (uV) Baseline 1.6 Quick Contraction 10.5 10 Second Contraction 9.1 Recruitment Pattern Good Relaxation Fair Holding Fair Stability of Hold Fair SEMG Stability of Rest Fair Comments Pelvic Floor Comments Quick Flicks: 10 reps strength (uV's): avg work 10.5, avg rest 7.1. 20 reps strength (uV's): avg work 10.1, avg rest 9.2. Long Holds: 10 reps strength (uV's): avg work 9.1, avg rest 2.7. 20 reps strength (uV's): avg work 8.9, avg rest 2.3. PT-OP-J Posture/Palpation/Skin Start: 11/28/23 18:14 Freq: Status: Active Protocol: Document 12/19/23 13:05 LRN (Rec: 12/19/23 17:45 LRN [id number]) Posture Evaluation Position Standing L-Spine Posture Increased Lordosis,Shifted Right Shoulder Posture (L) Forward,(R) Forward,(L) Elevated Pelvis Posture (R) Rotated Posterior Comments Posture Comments Decrease thoracic curve, neutral pelvis, C-curve with apex on R at mid thoracic level. PT-OP-K Range of Motion Start: 11/28/23 18:14 Freq: Status: Active Protocol: Document 12/19/23 13:05 LRN (Rec: 12/19/23 17:45 LRN [id number]) Lumbar Spine Range of Motion Lumbar Spine Active Degrees Testing Position Standing Flexion 83 Extension 5 Rotation Left 30 Rotation Right 40 Lateral Flexion Left 13 Lateral Flexion Right 10 Comments Trunk AROM: Flexion is 83 deg ?s with 50 deg?s hip flexion, Trunk extension is 5 deg?s with 10 deg?s hip extension. Hip Goniometric Range of Motion Hip Right Passive Internal Rotation 35 External Rotation 65 Comments Mildy + Asa Test Left Passive Internal Rotation 25 External Rotation 50 Comments + Asa test PT-OP-M Strength Start: 11/28/23 18:14 Freq: Status: Active Protocol: Document 12/19/23 13:05 LRN (Rec: 12/19/23 17:45 LRN [id number]) Trunk Strength Trunk Manual Muscle Testing Core Stabilization Decreased core stability with MMT of hips, worse with flex/ ext testing. Hip Strength Hip Manual Muscle Testing Right Comments Strength is 5/5 Left External Rotation 3+ Fair+ Comments Strength is 5/5 except as indicated above. PT-OP-Q Treatments Start: 11/28/23 18:14 Freq: Status: Active Protocol: Document 03/12/24 07:31 LRN (Rec: 03/12/24 08:21 LRN [id number]) Therapeutic Exercises Supine Exercises Hip Flexors Supine Exercise Name Asa Test position stretch Side bilateral Reps/Minutes 1x each Comments Cued to PPT to keep back flat Piriformis Supine Exercise Name Knee over ankle>KTC & knee to opp shdr Reps/Minutes 2x each Comments L hip feels tighter than R for pt. LTR Supine Exercise Name LTR stretch Side bilateral Reps/Minutes 3x each Comments Cued to deep breath for lower abdominal stretch Prone Exercises ANGELO Prone Exercise Name ANGELO - cued for 2 breath hold. Inhale-PF stretch, Exhale-PF relax Reps/Minutes 5 SH & 10 SH x 3 each, rest position for 2 deep breaths Comments Extra time for modifying exercise. Sidelying Exercises Open Book Side bilateral Reps/Minutes 10' for 2 breath hold Comments Cued to stretch abdomen, keep hand in alignment with head. Sitting Exercises Hip AD stretch Sitting Exercise Name SL on plinth for AD stretch Side bilateral Reps/Minutes 1x each Comments extra time to determine max nydia stretch Piriformis stretch Sitting Exercise Name Ankle over knee, opp shldr to knee Side bilateral Reps/Minutes 1x Standing Exercises Hip Flexor stretch Standing Exercise Name Hip Flexor stretch (knee on chair) Side bilateral Reps/Minutes reviewed Comments Cued to PPT for stretch Other Exercises Thread the [place] Side bilateral Reps/Minutes 1x each Comments Cued to breath through exercise. Child's Pose Other Exercise Name Child's pose for 1) abdominal relaxation, 2) exhale PF contraction. Reps/Minutes 10' Comments Extra time coordinating relaxation with breath & Kegel w/breath Self-Care/Home Management Treatment Education Patient Education Home Exercise Program Activities Self-Care/Home Management Activities Issued and reviewed HEP: Supine Piriformis stretch (2 types) and in sitting, SL hip AD stretch, ANGELO stretch, Ilipsoas stretch (asa test position) and standing Ilipsoas stretch. PT-OP-T Assessment and Plan Start: 11/28/23 18:14 Freq: Status: Active Protocol: Document 03/12/24 07:31 LRN (Rec: 03/12/24 08:21 LRN [id number]) Physical Therapy Assessment Goals Three Impairment Pressure pain prior to menstration and with intercourse. Short Term Goal (STG) Pt will be educated in modified positioning to help decrease/relieve pressure feeling with intercourse. 02/26/24: Pt having pressure in lower abdomen when on top of spouse; therefore recommended pt urinate before intercourse and recommended stretching. STG Duration 4 wks-03/26/24 Assembly Line Driver Goal (LTG) Improve abdominal mobility to decrease/relieve pressure pain with menstration. LTG Duration 11 wks-05/14/24 Two Impairment Feeling of heaviness in PF Short Term Goal (STG) Pt will be educated in core pressure management with transfers, ADLs and exercise. 02/26/24: Pt educated in core pressure management with trnsfers. STG Duration 4 wks-03/26/24 progressed 02/26/24 (need ed for ADLs & ex) Assembly Line Driver Goal (LTG) Decrease/relieve sense of heaviness from 2/10 to 0-1/10. 03/12/24: Pt reports there is a decrease in heaviness. LTG Duration 11 wks-05/14/24 progressed One Impairment Lacks appropriate HEP Short Term Goal (STG) Pt will be educated in HEP: thoracic mob ex's and abdominal stretching. 02/26/24: HEP issued: Open book (T/S rot) & ANGELO/Sphinx ( abdominal stretching). STG Duration (02/26/24: MET GOAL) Assembly Line Driver Goal (LTG) Pt will be independent in a self care HEP of PF/hip stretches and self STM. 12/26/23: HEP: KEgels: focus on long hold and relaxation. 02/26/24: Pt encouraged to do walking or more ex prior and during period to improve PF circulation. 03/12/24: HEP: Supine Piriformis stretch (2 types) and in sitting, SL hip AD stretch, ANGELO stretch, Ilipsoas stretch (asa test position ) and standing Ilipsoas stretch. LTG Duration 11 wks-05/14/24 progressed Assessment Summary Assessment Pt is a 38 yo female with lower abdominal and PF pressure pain, possible pelvic congestion. Pt needing review of exercises. Appears to have good understanding of new HEP of hip stretches. L hip Piriformis tighter than R in supine. Tightness with all hip stretches today. Physical Therapy Plan Frequency and Duration Frequency of Treatment 1x/Week Duration of treatment (weeks) 11 Plan of Care Start Date 12/19/23 Plan of Care End Date 05/14/24 Next Visit Focus/Plan Next Note Type Treatment Note Next Visit Plan Caution: Possble PF Varicosity on R lower abdomen) ; therefore No Stim. Next: Core pressure mgmt w/ coordination of breath with ADLs & issue & review HEP: thoracic mob ex's (cat/cow) and abdominal stretching (LTR) . Review previously issued HEP. When available, Neuro-allyn: Vemg biofeedback to improve circulation and reduce pressure with long hold Kegel/ PF relaxation MANUAL: PF, Abdomen and lower abdomen (Caution: Possble PF Varicosity on R lower abdomen ), Hips (IR L>R), Uterus/ Bladder, Mob & self mob for R posture rotated innominate dysfunction. POC: Stretches hip, PF; Deep Breathing, Self care (?PF self stretching w/wand), pain management (hot/cold).
--- NOTE | 2024-03-22 16:25 | PT.OTN ---
Current Diagnoses Other specified conditions associated with female genital organs and menstrual cycle (03/22/24) Physical Therapy Treatment Note PT-OP-A Visit Information Start: 11/28/23 18:14 Freq: Status: Active Protocol: Document 03/22/24 13:48 LRN (Rec: 03/22/24 14:33 LRN [id number]) Out-Patient Physical Therapy Visit Information Visit Information Visit Type Treatment Note Visit Start Time 13:48 Visit Stop Time 14:28 Visit Number 05/06 Evaluation Information Evaluation Date 12/19/23 Precautions Precautions Pt reported PF varicosity on R lower abdomen during intercourse. PT-OP-B Current Condition Start: 11/28/23 18:14 Freq: Status: Active Protocol: Document 12/19/23 13:05 LRN (Rec: 12/19/23 17:45 LRN [id number]) Current Condition History of Current Condition Onset Date 2021 Current Complaints Heaviness/fullness in lower abdomen History of Current Condition Pt has had 3 vaginal births with last one in 2019 with son weighing 8#12 oz. She began to have a feeling of heaviness in her PF and lower abdomen in 2021. Currently, prior to menstration (4-5 days before menstration) she has a sharp pinch in the lower abdomen. Also having pressure pain with certain positions during intercourse, mainly with pt in hands/knees and spouse behind (pressure when fully inserted deep and with in/out movement ), She describes her discomfort as pressure like elephant sittting on her lower abdomen. Running or jumping creates heaviness. Prior Treatments and Tests Pt reported ultrasound imaging from [facility] showed varicose veins in outside of vaginal canal in R lower quadrant. Developmental History Developmental History 3 vaginal births (2011, 2014, 2018), Cervical conization in 2008 - negative for infection. Treatment Goals Patient/Caregiver Goals Pt goal is to: Decrease/relieve pressure pain with menstration. Decrease/relieve pressure feeling with intercourse. Decrease/relieve sense of heaviness. 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 PT-OP-C Subjective Start: 11/28/23 18:14 Freq: Status: Active Protocol: Document 03/22/24 13:48 LRN (Rec: 03/22/24 14:33 LRN [id number]) OP-PT Subjective Patient Comments Patient Comments States she hasn't felt pressure/heaviness in the R lower quadrant for the past week and although the period should be starting soon and with sex, not feeling the pressure. PT-OP-I Pelvic Floor Start: 11/28/23 18:14 Freq: Status: Active Protocol: Document 01/09/24 09:50 LRN (Rec: 01/09/24 16:03 LRN [id number]) Pelvic Floor Assessment SEMG (uV) Baseline 1.6 Quick Contraction 10.5 10 Second Contraction 9.1 Recruitment Pattern Good Relaxation Fair Holding Fair Stability of Hold Fair SEMG Stability of Rest Fair Comments Pelvic Floor Comments Quick Flicks: 10 reps strength (uV's): avg work 10.5, avg rest 7.1. 20 reps strength (uV's): avg work 10.1, avg rest 9.2. Long Holds: 10 reps strength (uV's): avg work 9.1, avg rest 2.7. 20 reps strength (uV's): avg work 8.9, avg rest 2.3. PT-OP-J Posture/Palpation/Skin Start: 11/28/23 18:14 Freq: Status: Active Protocol: Document 12/19/23 13:05 LRN (Rec: 12/19/23 17:45 LRN [id number]) Posture Evaluation Position Standing L-Spine Posture Increased Lordosis,Shifted Right Shoulder Posture (L) Forward,(R) Forward,(L) Elevated Pelvis Posture (R) Rotated Posterior Comments Posture Comments Decrease thoracic curve, neutral pelvis, C-curve with apex on R at mid thoracic level. PT-OP-K Range of Motion Start: 11/28/23 18:14 Freq: Status: Active Protocol: Document 12/19/23 13:05 LRN (Rec: 12/19/23 17:45 LRN [id number]) Lumbar Spine Range of Motion Lumbar Spine Active Degrees Testing Position Standing Flexion 83 Extension 5 Rotation Left 30 Rotation Right 40 Lateral Flexion Left 13 Lateral Flexion Right 10 Comments Trunk AROM: Flexion is 83 deg ?s with 50 deg?s hip flexion, Trunk extension is 5 deg?s with 10 deg?s hip extension. Hip Goniometric Range of Motion Hip Right Passive Internal Rotation 35 External Rotation 65 Comments Mildy + Asa Test Left Passive Internal Rotation 25 External Rotation 50 Comments + Asa test PT-OP-M Strength Start: 11/28/23 18:14 Freq: Status: Active Protocol: Document 12/19/23 13:05 LRN (Rec: 12/19/23 17:45 LRN [id number]) Trunk Strength Trunk Manual Muscle Testing Core Stabilization Decreased core stability with MMT of hips, worse with flex/ ext testing. Hip Strength Hip Manual Muscle Testing Right Comments Strength is 5/5 Left External Rotation 3+ Fair+ Comments Strength is 5/5 except as indicated above. PT-OP-Q Treatments Start: 11/28/23 18:14 Freq: Status: Active Protocol: Document 03/22/24 13:48 LRN (Rec: 03/22/24 14:33 LRN [id number]) Therapeutic Exercises Supine Exercises Hip Flexors Supine Exercise Name Asa Test position stretch Side bilateral Reps/Minutes 1x each Comments Cued to PPT to keep back flat Piriformis Supine Exercise Name Knee over ankle>KTC & knee to opp shdr Reps/Minutes 2x each Comments L hip feels tighter than R for pt. LTR Supine Exercise Name LTR stretch - knee rolls to R is tighter Side bilateral Reps/Minutes 3x each Comments Cued to deep breath for lower abdominal stretch Sidelying Exercises Open Book Side bilateral Reps/Minutes 10' for 2 breath hold Comments Cued to stretch abdomen, keep hand in alignment with head. Sitting Exercises Hip AD stretch Sitting Exercise Name SL on plinth for AD stretch Side bilateral Reps/Minutes 1x each Comments extra time to determine max nydia stretch Standing Exercises Hip Flexor stretch Standing Exercise Name Hip Flexor stretch (knee on chair) Side bilateral Reps/Minutes reviewed Comments Cued to PPT for stretch Other Exercises Thread the [place] Side bilateral Reps/Minutes 1x each Comments Cued to breath through exercise. Child's Pose Other Exercise Name Child's pose for 1) abdominal relaxation, 2) exhale PF contraction. Reps/Minutes 3' Comments Cued to PPT to get L/S stretch . Manual Therapy Treatment Soft Tissue Mobilization Abdomen Body Location Lower abdomen (area of urachus and lift of lower abdomen) Mobilization Type Sustained Pressure Intensity/Depth Moderate Body Position Supine Comments Pt ticklish; therefore limited in treatment. Less tickling with stretch. Self-Care/Home Management Treatment Education Other Education Discussed & Educated pt in core pressure mgmt with ADLs and exercise. Activities Self-Care/Home Management Activities Handout issued for core pressure mgmt with ADLs and exercise. PT-OP-T Assessment and Plan Start: 11/28/23 18:14 Freq: Status: Active Protocol: Document 03/22/24 13:48 LRN (Rec: 03/22/24 14:33 LRN [id number]) Physical Therapy Assessment Goals Three Impairment Pressure pain prior to menstration and with intercourse. Short Term Goal (STG) Pt will be educated in modified positioning to help decrease/relieve pressure feeling with intercourse. 02/26/24: Pt having pressure in lower abdomen when on top of spouse; therefore recommended pt urinate before intercourse and recommended stretching. 03/22/24: Pressure on abdomen with intercourse is not causing a feeling of pressure or heaviness. STG Duration 4 wks-03/26/24 (03/22/24: MET GOAL) Booth Manager Goal (LTG) Improve abdominal mobility to decrease/relieve pressure pain with menstration. 03/22/24: Pre-menstrual observations of pt is no pressure yet. LTG Duration 11 wks-05/14/24 Two Impairment Feeling of heaviness in PF Short Term Goal (STG) Pt will be educated in core pressure management with transfers, ADLs and exercise. 02/26/24: Pt educated in core pressure management with trnsfers. 03/22/24: Pt educated in core pressure mgmt with ADLs and exercise. STG Duration 4 wks-03/26/24 (03/22/24: MET GOAL) Booth Manager Goal (LTG) Decrease/relieve sense of heaviness from 2/10 to 0-1/10. 03/12/24: Pt reports there is a decrease in heaviness. LTG Duration 11 wks-05/14/24 progressed 03/12/24 One Impairment Lacks appropriate HEP Short Term Goal (STG) Pt will be educated in HEP: thoracic mob ex's and abdominal stretching. 02/26/24: HEP issued: Open book (T/S rot) & ANGELO/Sphinx ( abdominal stretching). STG Duration (02/26/24: MET GOAL) Booth Manager Goal (LTG) Pt will be independent in a self care HEP of PF/hip stretches and self STM. 12/26/23: HEP: Kegels: focus on long hold and relaxation. 02/26/24: Pt encouraged to do walking or more ex prior and during period to improve PF circulation. 03/12/24: HEP: Supine Piriformis stretch (2 types) and in sitting, SL hip AD stretch, ANGELO stretch, Iliopsoas stretch (asa test position) and standing Ilopsoas stretch. LTG Duration 11 wks-05/14/24 progressed Assessment Summary Assessment Pt is a 38 yo female with lower abdominal and PF pressure pain, possible pelvic congestion. Today pt reporting less lower abdominal pressure. Trunk rot w/knee rolls to R is more difficult and she is very tight in abdominal muscles/soft tissue. + response to manual STM with less tissue sensitivity, tickelish feeling after mobilization. Physical Therapy Plan Frequency and Duration Frequency of Treatment 1x/Week Duration of treatment (weeks) 11 Plan of Care Start Date 12/19/23 Plan of Care End Date 05/14/24 Next Visit Focus/Plan Next Note Type Treatment Note Next Visit Plan (Caution: Possble PF Varicosity on R lower abdomen) ; therefore No Stim. Next: If pt able to get in for rx w/o Vemg unit, start exer: Issue HEP: thoracic mob ex's (cat/cow) and abdominal stretching (LTR). ? PF stretch w/wand. When available, Neuro-allyn: Vemg biofeedback to improve circulation and reduce pressure with long hold Kegel/ PF relaxation MANUAL: PF, Abdomen and lower abdomen (Caution: Possble PF Varicosity on R lower abdomen ), Uterus/Bladder, Mob & self mob for R posture rotated innominate dysfunction, Hips ( IR L>R). POC: Stretches hip, PF; Deep Breathing, Self care (?PF self stretching w/wand), pain management (hot/cold).
--- NOTE | 2024-04-09 15:52 | PT.OTN ---
Current Diagnoses Other specified conditions associated with female genital organs and menstrual cycle (04/09/24) Physical Therapy Treatment Note PT-OP-A Visit Information Start: 11/28/23 18:14 Freq: Status: Active Protocol: Document 04/09/24 13:01 LRN (Rec: 04/09/24 15:52 LRN [id number]) Out-Patient Physical Therapy Visit Information Visit Information Visit Type Treatment Note Visit Start Time 13:01 Visit Stop Time 13:51 Visit Number 06/05 Evaluation Information Evaluation Date 12/19/23 Precautions Precautions Pt reported PF varicosity on R lower abdomen during intercourse. PT-OP-B Current Condition Start: 11/28/23 18:14 Freq: Status: Active Protocol: Document 12/19/23 13:05 LRN (Rec: 12/19/23 17:45 LRN [id number]) Current Condition History of Current Condition Onset Date 2021 Current Complaints Heaviness/fullness in lower abdomen History of Current Condition Pt has had 3 vaginal births with last one in 2019 with son weighing 8#12 oz. She began to have a feeling of heaviness in her PF and lower abdomen in 2021. Currently, prior to menstration (4-5 days before menstration) she has a sharp pinch in the lower abdomen. Also having pressure pain with certain positions during intercourse, mainly with pt in hands/knees and spouse behind (pressure when fully inserted deep and with in/out movement ), She describes her discomfort as pressure like elephant sittting on her lower abdomen. Running or jumping creates heaviness. Prior Treatments and Tests Pt reported ultrasound imaging from [facility] showed varicose veins in outside of vaginal canal in R lower quadrant. Developmental History Developmental History 3 vaginal births (2011, 2014, 2018), Cervical conization in 2008 - negative for infection. Treatment Goals Patient/Caregiver Goals Pt goal is to: Decrease/relieve pressure pain with menstration. Decrease/relieve pressure feeling with intercourse. Decrease/relieve sense of heaviness. 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 PT-OP-C Subjective Start: 11/28/23 18:14 Freq: Status: Active Protocol: Document 04/09/24 13:01 LRN (Rec: 04/09/24 15:52 LRN [id number]) OP-PT Subjective Patient Comments Patient Comments States she has less heaviness with standing, can 10-15' before feeling like it will fall out. No tightness around the vaginal opening anymore. PT-OP-I Pelvic Floor Start: 11/28/23 18:14 Freq: Status: Active Protocol: Document 01/09/24 09:50 LRN (Rec: 01/09/24 16:03 LRN [id number]) Pelvic Floor Assessment SEMG (uV) Baseline 1.6 Quick Contraction 10.5 10 Second Contraction 9.1 Recruitment Pattern Good Relaxation Fair Holding Fair Stability of Hold Fair SEMG Stability of Rest Fair Comments Pelvic Floor Comments Quick Flicks: 10 reps strength (uV's): avg work 10.5, avg rest 7.1. 20 reps strength (uV's): avg work 10.1, avg rest 9.2. Long Holds: 10 reps strength (uV's): avg work 9.1, avg rest 2.7. 20 reps strength (uV's): avg work 8.9, avg rest 2.3. PT-OP-J Posture/Palpation/Skin Start: 11/28/23 18:14 Freq: Status: Active Protocol: Document 12/19/23 13:05 LRN (Rec: 12/19/23 17:45 LRN [id number]) Posture Evaluation Position Standing L-Spine Posture Increased Lordosis,Shifted Right Shoulder Posture (L) Forward,(R) Forward,(L) Elevated Pelvis Posture (R) Rotated Posterior Comments Posture Comments Decrease thoracic curve, neutral pelvis, C-curve with apex on R at mid thoracic level. PT-OP-K Range of Motion Start: 11/28/23 18:14 Freq: Status: Active Protocol: Document 12/19/23 13:05 LRN (Rec: 12/19/23 17:45 LRN [id number]) Lumbar Spine Range of Motion Lumbar Spine Active Degrees Testing Position Standing Flexion 83 Extension 5 Rotation Left 30 Rotation Right 40 Lateral Flexion Left 13 Lateral Flexion Right 10 Comments Trunk AROM: Flexion is 83 deg ?s with 50 deg?s hip flexion, Trunk extension is 5 deg?s with 10 deg?s hip extension. Hip Goniometric Range of Motion Hip Right Passive Internal Rotation 35 External Rotation 65 Comments Mildy + Asa Test Left Passive Internal Rotation 25 External Rotation 50 Comments + Asa test PT-OP-M Strength Start: 11/28/23 18:14 Freq: Status: Active Protocol: Document 12/19/23 13:05 LRN (Rec: 12/19/23 17:45 LRN [id number]) Trunk Strength Trunk Manual Muscle Testing Core Stabilization Decreased core stability with MMT of hips, worse with flex/ ext testing. Hip Strength Hip Manual Muscle Testing Right Comments Strength is 5/5 Left External Rotation 3+ Fair+ Comments Strength is 5/5 except as indicated above. PT-OP-Q Treatments Start: 11/28/23 18:14 Freq: Status: Active Protocol: Document 04/09/24 13:01 LRN (Rec: 04/09/24 15:52 LRN [id number]) Therapeutic Exercises Supine Exercises Piriformis Supine Exercise Name Knee over ankle>KTC & knee to opp shdr Reps/Minutes 2x each Comments L hip feels tighter than R for pt. LTR Supine Exercise Name LTR stretch - knee rolls to R is tighter Side bilateral Reps/Minutes 3x each Comments Cued to deep breath for lower abdominal stretch PF 10 SH contractions Supine Exercise Name With Vemg Reps/Minutes 10 reps, 20 reps Comments high 9.0 low 3.0, H 8.6 L 3.0 PF Quick Contractions Supine Exercise Name With Vemg Reps/Minutes 10 reps, 20 reps Comments High 8.8 low 5.2, H 8.5 L 5.7 Prone Exercises ANGELO Prone Exercise Name ANGELO - cued for 2 breath hold. Inhale-PF stretch, Exhale-PF relax Reps/Minutes 5 SH & 10 SH x 3 each, rest position for 2 deep breaths Comments Extra time for modifying exercise. Sitting Exercises Hip AD stretch Sitting Exercise Name SL on plinth for AD stretch Side bilateral Reps/Minutes 1x each Comments extra time to determine max nydia stretch Standing Exercises wall posture Standing Exercise Name Pelvis in neutral, ribcage over pelvis. Equipment Used back to wall Reps/Minutes 5' Comments provided HO Other Exercises cat camel Reps/Minutes 3' (10 reps HEP) Comments proivided HO TBall stretch Other Exercise Name TBall rhomboid stretch Equipment Used 65cm tball Reps/Minutes 3' Comments provided HO Thread the [place] Side bilateral Reps/Minutes 2-3x each side 30-45SH Comments Cued to breath through exercise. Child's Pose Other Exercise Name Child's pose for 1) abdominal relaxation, 2) exhale PF contraction. Reps/Minutes 3' Comments Cued to PPT to get L/S stretch . Manual Therapy Treatment Soft Tissue Mobilization iliopsoas Body Location Jaime Mobilization Type Sustained Pressure Intensity/Depth Moderate Body Position Supine Comments 1 hand distal att med/prox femur 2 hand posterior opp spinus process Self-Care/Home Management Treatment Education Patient Education Home Exercise Program,Posture Activities Self-Care/Home Management Activities Handout issued for added HEP: cat camel, rhomboid stretch over tball, ribcage over pelvic alignment back to wall. PT-OP-T Assessment and Plan Start: 11/28/23 18:14 Freq: Status: Active Protocol: Document 04/09/24 13:01 LRN (Rec: 04/09/24 15:52 LRN [id number]) Physical Therapy Assessment Goals Three Impairment Pressure pain prior to menstration and with intercourse. Short Term Goal (STG) Pt will be educated in modified positioning to help decrease/relieve pressure feeling with intercourse. 02/26/24: Pt having pressure in lower abdomen when on top of spouse; therefore recommended pt urinate before intercourse and recommended stretching. 03/22/24: Pressure on abdomen with intercourse is not causing a feeling of pressure or heaviness. STG Duration 4 wks-03/26/24 (03/22/24: MET GOAL) Technician Plant And Maintenance Goal (LTG) Improve abdominal mobility to decrease/relieve pressure pain with menstration. 03/22/24: Pre-menstrual observations of pt is no pressure yet. LTG Duration 11 wks-05/14/24 Two Impairment Feeling of heaviness in PF Short Term Goal (STG) Pt will be educated in core pressure management with transfers, ADLs and exercise. 02/26/24: Pt educated in core pressure management with trnsfers. 03/22/24: Pt educated in core pressure mgmt with ADLs and exercise. STG Duration 4 wks-03/26/24 (03/22/24: MET GOAL) Technician Plant And Maintenance Goal (LTG) Decrease/relieve sense of heaviness from 2/10 to 0-1/10. 03/12/24: Pt reports there is a decrease in heaviness. LTG Duration 11 wks-05/14/24 progressed 03/12/24 One Impairment Lacks appropriate HEP Short Term Goal (STG) Pt will be educated in HEP: thoracic mob ex's and abdominal stretching. 02/26/24: HEP issued: Open book (T/S rot) & ANGELO/Sphinx ( abdominal stretching). STG Duration (02/26/24: MET GOAL) Custodial Goal (LTG) Pt will be independent in a self care HEP of PF/hip stretches and self STM. 12/26/23: HEP: Kegels: focus on long hold and relaxation. 02/26/24: Pt encouraged to do walking or more ex prior and during period to improve PF circulation. 03/12/24: HEP: Supine Piriformis stretch (2 types) and in sitting, SL hip AD stretch, ANGELO stretch, Iliopsoas stretch (asa test position) and standing Ilopsoas stretch. 04/09/24: added cat/cow, thoracic flexion over tball, wall posture ribcage over pelvis. LTG Duration 11 wks-05/14/24 progressed Assessment Summary Assessment Pt is a 38 yo female with lower abdominal and PF pressure pain, possible pelvic congestion. Today pt reporting less lower abdominal pressure. Her dysparenia, vaginal entry pain, appears to have resolved. Improved reduction tightness at iliopsoas with manual release. Cues and education for set up and proper form during continued stretching exercises . Physical Therapy Plan Frequency and Duration Frequency of Treatment 1x/Week Duration of treatment (weeks) 11 Plan of Care Start Date 12/19/23 Plan of Care End Date 05/14/24 Next Visit Focus/Plan Next Note Type Treatment Note Next Visit Plan (Caution: Possble PF Varicosity on R lower abdomen) ; therefore No Stim. Next: If pt able to get in for rx w/o Vemg unit, start exer: (Issue)HEP: abdominal stretching (LTR). When available, Neuro-allyn: Vemg biofeedback to improve circulation and reduce pressure with long hold Kegel w/focus of PF relaxation. MANUAL: Abdomen and lower abdomen (Caution: Possble PF Varicosity on R lower abdomen) , Uterus/Bladder, Mob & self mob for R posture rotated innominate dysfunction, Hips ( IR L>R). POC: Stretches hip, PF; Deep Breathing, Self care, pain management (hot/cold).
--- NOTE | 2024-04-16 16:28 | PT.OTN ---
Current Diagnoses Other specified conditions associated with female genital organs and menstrual cycle (04/16/24) Physical Therapy Treatment Note PT-OP-A Visit Information Start: 11/28/23 18:14 Freq: Status: Active Protocol: Document 04/16/24 10:32 LRN (Rec: 04/16/24 11:20 LRN [id number]) Out-Patient Physical Therapy Visit Information Visit Information Visit Type Treatment Note Visit Start Time 10:32 Visit Stop Time 11:12 Visit Number 07/06 Evaluation Information Evaluation Date 12/19/23 Precautions Precautions Pt reported PF varicosity on R lower abdomen during intercourse. PT-OP-B Current Condition Start: 11/28/23 18:14 Freq: Status: Active Protocol: Document 12/19/23 13:05 LRN (Rec: 12/19/23 17:45 LRN [id number]) Current Condition History of Current Condition Onset Date 2021 Current Complaints Heaviness/fullness in lower abdomen History of Current Condition Pt has had 3 vaginal births with last one in 2019 with son weighing 8#12 oz. She began to have a feeling of heaviness in her PF and lower abdomen in 2021. Currently, prior to menstration (4-5 days before menstration) she has a sharp pinch in the lower abdomen. Also having pressure pain with certain positions during intercourse, mainly with pt in hands/knees and spouse behind (pressure when fully inserted deep and with in/out movement ), She describes her discomfort as pressure like elephant sittting on her lower abdomen. Running or jumping creates heaviness. Prior Treatments and Tests Pt reported ultrasound imaging from [facility] showed varicose veins in outside of vaginal canal in R lower quadrant. Developmental History Developmental History 3 vaginal births (2011, 2014, 2018), Cervical conization in 2008 - negative for infection. Treatment Goals Patient/Caregiver Goals Pt goal is to: Decrease/relieve pressure pain with menstration. Decrease/relieve pressure feeling with intercourse. Decrease/relieve sense of heaviness. 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 PT-OP-C Subjective Start: 11/28/23 18:14 Freq: Status: Active Protocol: Document 04/16/24 10:32 LRN (Rec: 04/16/24 11:20 LRN [id number]) OP-PT Subjective Patient Comments Patient Comments Doing ex's, walking, yoga, all the same. States she feels very tired because her period started today. Patient Reported Progress Same PT-OP-I Pelvic Floor Start: 11/28/23 18:14 Freq: Status: Active Protocol: Document 01/09/24 09:50 LRN (Rec: 01/09/24 16:03 LRN [id number]) Pelvic Floor Assessment SEMG (uV) Baseline 1.6 Quick Contraction 10.5 10 Second Contraction 9.1 Recruitment Pattern Good Relaxation Fair Holding Fair Stability of Hold Fair SEMG Stability of Rest Fair Comments Pelvic Floor Comments Quick Flicks: 10 reps strength (uV's): avg work 10.5, avg rest 7.1. 20 reps strength (uV's): avg work 10.1, avg rest 9.2. Long Holds: 10 reps strength (uV's): avg work 9.1, avg rest 2.7. 20 reps strength (uV's): avg work 8.9, avg rest 2.3. PT-OP-J Posture/Palpation/Skin Start: 11/28/23 18:14 Freq: Status: Active Protocol: Document 12/19/23 13:05 LRN (Rec: 12/19/23 17:45 LRN [id number]) Posture Evaluation Position Standing L-Spine Posture Increased Lordosis,Shifted Right Shoulder Posture (L) Forward,(R) Forward,(L) Elevated Pelvis Posture (R) Rotated Posterior Comments Posture Comments Decrease thoracic curve, neutral pelvis, C-curve with apex on R at mid thoracic level. PT-OP-K Range of Motion Start: 11/28/23 18:14 Freq: Status: Active Protocol: Document 12/19/23 13:05 LRN (Rec: 12/19/23 17:45 LRN [id number]) Lumbar Spine Range of Motion Lumbar Spine Active Degrees Testing Position Standing Flexion 83 Extension 5 Rotation Left 30 Rotation Right 40 Lateral Flexion Left 13 Lateral Flexion Right 10 Comments Trunk AROM: Flexion is 83 deg ?s with 50 deg?s hip flexion, Trunk extension is 5 deg?s with 10 deg?s hip extension. Hip Goniometric Range of Motion Hip Right Passive Internal Rotation 35 External Rotation 65 Comments Mildy + Asa Test Left Passive Internal Rotation 25 External Rotation 50 Comments + Asa test PT-OP-M Strength Start: 11/28/23 18:14 Freq: Status: Active Protocol: Document 12/19/23 13:05 LRN (Rec: 12/19/23 17:45 LRN [id number]) Trunk Strength Trunk Manual Muscle Testing Core Stabilization Decreased core stability with MMT of hips, worse with flex/ ext testing. Hip Strength Hip Manual Muscle Testing Right Comments Strength is 5/5 Left External Rotation 3+ Fair+ Comments Strength is 5/5 except as indicated above. PT-OP-Q Treatments Start: 11/28/23 18:14 Freq: Status: Active Protocol: Document 04/16/24 10:32 LRN (Rec: 04/16/24 11:20 LRN [id number]) Therapeutic Exercises Supine Exercises LTR Supine Exercise Name LTR stretch - knee rolls to R is tighter Side bilateral Reps/Minutes 3x each Comments Cued to deep breath for lower abdominal stretch Prone Exercises ANGELO Prone Exercise Name ANGELO - cued for 2 breath hold. Inhale-PF stretch, Exhale-PF relax Reps/Minutes 5 SH & 10 SH x 3 each, rest position for 2 deep breaths Comments Extra time for modifying exercise. Other Exercises Happy Baby Pose Other Exercise Name Happy Baby Pose Reps/Minutes 2' cat camel Reps/Minutes 3' (10 reps HEP) Comments proivided HO Thread the [place] Side bilateral Reps/Minutes 2-3x each side 30-45SH Comments Cued to breath through exercise. Child's Pose Other Exercise Name Child's pose for 1) abdominal relaxation, 2) exhale PF contraction. Reps/Minutes 3' Comments Cued to PPT to get L/S stretch . Manual Therapy Treatment Soft Tissue Mobilization iliopsoas Body Location R Iliopsoas- MFR release Mobilization Type Myofascial Release,Sustained Pressure Body Position Supine Abdomen Body Location Lower abdomen (area of urachus , lift and mob lower abdomen) Mobilization Type Sustained Pressure Intensity/Depth Moderate Body Position Supine Comments Pt ticklish on R side PT-OP-T Assessment and Plan Start: 11/28/23 18:14 Freq: Status: Active Protocol: Document 04/16/24 10:32 LRN (Rec: 04/16/24 11:20 LRN [id number]) Physical Therapy Assessment Goals Three Impairment Pressure pain prior to menstration and with intercourse. Short Term Goal (STG) Pt will be educated in modified positioning to help decrease/relieve pressure feeling with intercourse. 02/26/24: Pt having pressure in lower abdomen when on top of spouse; therefore recommended pt urinate before intercourse and recommended stretching. 03/22/24: Pressure on abdomen with intercourse is not causing a feeling of pressure or heaviness. STG Duration 4 wks-03/26/24 (03/22/24: MET GOAL) Assisted Goal (LTG) Improve abdominal mobility to decrease/relieve pressure pain with menstration. 03/22/24: Pre-menstrual observations of pt is no pressure yet. LTG Duration 11 wks-05/14/24 Two Impairment Feeling of heaviness in PF Short Term Goal (STG) Pt will be educated in core pressure management with transfers, ADLs and exercise. 02/26/24: Pt educated in core pressure management with trnsfers. 03/22/24: Pt educated in core pressure mgmt with ADLs and exercise. STG Duration 4 wks-03/26/24 (03/22/24: MET GOAL) Research Software Engineer Goal (LTG) Decrease/relieve sense of heaviness from 2/10 to 0-1/10. 03/12/24: Pt reports there is a decrease in heaviness. LTG Duration 11 wks-05/14/24 progressed 03/12/24 One Impairment Lacks appropriate HEP Short Term Goal (STG) Pt will be educated in HEP: thoracic mob ex's and abdominal stretching. 02/26/24: HEP issued: Open book (T/S rot) & ANGELO/Sphinx ( abdominal stretching). STG Duration (02/26/24: MET GOAL) Assisted Goal (LTG) Pt will be independent in a self care HEP of PF/hip stretches and self STM. 12/26/23: HEP: Kegels: focus on long hold and relaxation. 02/26/24: Pt encouraged to do walking or more ex prior and during period to improve PF circulation. 03/12/24: HEP: Supine Piriformis stretch (2 types) and in sitting, SL hip AD stretch, ANGELO stretch, Iliopsoas stretch (asa test position) and standing Ilopsoas stretch. 04/09/24: added cat/cow, thoracic flexion over tball, wall posture ribcage over pelvis. LTG Duration 11 wks-05/14/24 progressed Assessment Summary Assessment Pt is a 38 yo female with lower abdominal and PF pressure pain, possible pelvic congestion. + response to manual therapy. Improved ability to breath after manual abdominal decompression and mild response to MFR to lateral trunk and diaphragm release & urachus. Pt just ending on her period. Physical Therapy Plan Frequency and Duration Frequency of Treatment 1x/Week Duration of treatment (weeks) 11 Plan of Care Start Date 12/19/23 Plan of Care End Date 05/14/24 Next Visit Focus/Plan Next Note Type Treatment Note Next Visit Plan (Caution: Possble PF Varicosity on R lower abdomen) ; therefore No Stim. Next: If pt able to get in for rx w/o Vemg unit, start exer: (Issue) HEP: abdominal stretching (LTR). ?Mob & self mob for R posture rotated innominate dysfunction, When available, Neuro-allyn: Vemg biofeedback to improve circulation and reduce pressure with long hold Kegel w/focus of PF relaxation. MANUAL: Abdomen and lower abdomen (Caution: Possble PF Varicosity on R lower abdomen) , Uterus/Bladder, Hips (IR L>R ). POC: Stretches hip, PF; Deep Breathing, Self care, pain management (hot/cold).
--- NOTE | 2024-07-19 14:37 | PT.OPDS ---
Current Diagnoses Other specified conditions associated with female genital organs and menstrual cycle (04/16/24) Visit Care Team Role Provider Type Celia Boudreaux MD Attending Provider Non-Staff Family Provider Primary Care Provider Referring Provider Specialty: Medical Address: [address] [place] [address], [phone] Email: Visit Number Visit Number 07/06 Discharge Summary PT-OP-B Current Condition Start: 11/28/23 18:14 Freq: Status: Active Protocol: Document 12/19/23 13:05 LRN (Rec: 12/19/23 17:45 LRN [id number]) Current Condition History of Current Condition Onset Date 2021 Current Complaints Heaviness/fullness in lower abdomen History of Current Condition Pt has had 3 vaginal births with last one in 2018 with son weighing 8#12 oz. She began to have a feeling of heaviness in her PF and lower abdomen in 2021. Currently, prior to menstration (4-5 days before menstration) she has a sharp pinch in the lower abdomen. Also having pressure pain with certain positions during intercourse, mainly with pt in hands/knees and spouse behind (pressure when fully inserted deep and with in/out movement ), She describes her discomfort as pressure like elephant sittting on her lower abdomen. Running or jumping creates heaviness. Prior Treatments and Tests Pt reported ultrasound imaging from [facility] showed varicose veins in outside of vaginal canal in R lower quadrant. Developmental History Developmental History 3 vaginal births (2011, 2014, 2018), Cervical conization in 2008 - negative for infection. Treatment Goals Patient/Caregiver Goals Pt goal is to: Decrease/relieve pressure pain with menstration. Decrease/relieve pressure feeling with intercourse. Decrease/relieve sense of heaviness. 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 PT-OP-C Subjective Start: 11/28/23 18:14 Freq: Status: Active Protocol: Document 07/19/24 14:27 LRN (Rec: 07/19/24 14:36 LRN [id number]) OP-PT Subjective Patient Comments Patient Comments Per phone converstation, pt states she is doing good and hasn't noticed any of the pelvic heaviness and has been keeping up with her stretches and keeping mobile. Pt understands that if she needs further therapy she will seek a new referral for physical therapy. PT-OP-I Pelvic Floor Start: 11/28/23 18:14 Freq: Status: Active Protocol: Document 01/09/24 09:50 LRN (Rec: 01/09/24 16:03 LRN [id number]) Pelvic Floor Assessment SEMG (uV) Baseline 1.6 Quick Contraction 10.5 10 Second Contraction 9.1 Recruitment Pattern Good Relaxation Fair Holding Fair Stability of Hold Fair SEMG Stability of Rest Fair Comments Pelvic Floor Comments Quick Flicks: 10 reps strength (uV's): avg work 10.5, avg rest 7.1. 20 reps strength (uV's): avg work 10.1, avg rest 9.2. Long Holds: 10 reps strength (uV's): avg work 9.1, avg rest 2.7. 20 reps strength (uV's): avg work 8.9, avg rest 2.3. PT-OP-J Posture/Palpation/Skin Start: 11/28/23 18:14 Freq: Status: Active Protocol: Document 12/19/23 13:05 LRN (Rec: 12/19/23 17:45 LRN [id number]) Posture Evaluation Position Standing L-Spine Posture Increased Lordosis,Shifted Right Shoulder Posture (L) Forward,(R) Forward,(L) Elevated Pelvis Posture (R) Rotated Posterior Comments Posture Comments Decrease thoracic curve, neutral pelvis, C-curve with apex on R at mid thoracic level. PT-OP-K Range of Motion Start: 11/28/23 18:14 Freq: Status: Active Protocol: Document 12/19/23 13:05 LRN (Rec: 12/19/23 17:45 LRN [id number]) Lumbar Spine Range of Motion Lumbar Spine Active Degrees Testing Position Standing Flexion 83 Extension 5 Rotation Left 30 Rotation Right 40 Lateral Flexion Left 13 Lateral Flexion Right 10 Comments Trunk AROM: Flexion is 83 deg ?s with 50 deg?s hip flexion, Trunk extension is 5 deg?s with 10 deg?s hip extension. Hip Goniometric Range of Motion Hip Right Passive Internal Rotation 35 External Rotation 65 Comments Mildy + Asa Test Left Passive Internal Rotation 25 External Rotation 50 Comments + Asa test PT-OP-M Strength Start: 11/28/23 18:14 Freq: Status: Active Protocol: Document 12/19/23 13:05 LRN (Rec: 12/19/23 17:45 LRN [id number]) Trunk Strength Trunk Manual Muscle Testing Core Stabilization Decreased core stability with MMT of hips, worse with flex/ ext testing. Hip Strength Hip Manual Muscle Testing Right Comments Strength is 5/5 Left External Rotation 3+ Fair+ Comments Strength is 5/5 except as indicated above. PT-OP-T Assessment and Plan Start: 11/28/23 18:14 Freq: Status: Active Protocol: Document 07/19/24 14:27 LRN (Rec: 07/19/24 14:36 LRN [id number]) Physical Therapy Assessment Goals Three Impairment Pressure pain prior to menstration and with intercourse. Short Term Goal (STG) Pt will be educated in modified positioning to help decrease/relieve pressure feeling with intercourse. 02/26/24: Pt having pressure in lower abdomen when on top of spouse; therefore recommended pt urinate before intercourse and recommended stretching. 03/22/24: Pressure on abdomen with intercourse is not causing a feeling of pressure or heaviness. STG Duration 4 wks-03/26/24 (03/22/24: MET GOAL) Logistics Assistant Goal (LTG) Improve abdominal mobility to decrease/relieve pressure pain with menstration. 03/22/24: Pre-menstrual observations of pt is no pressure yet. LTG Duration 11 wks-05/14/24 (07/19/24: Pt unavailable for final assessment) Two Impairment Feeling of heaviness in PF Short Term Goal (STG) Pt will be educated in core pressure management with transfers, ADLs and exercise. 02/26/24: Pt educated in core pressure management with trnsfers. 03/22/24: Pt educated in core pressure mgmt with ADLs and exercise. STG Duration 4 wks-03/26/24 (03/22/24: MET GOAL) Logistics Assistant Goal (LTG) Decrease/relieve sense of heaviness from 2/10 to 0-1/10. 03/12/24: Pt reports there is a decrease in heaviness. 07/19/24: Per phone states hasn't noticed heaviness. LTG Duration 11 wks-05/14/24 (07/19/24: MET GOAL) One Impairment Lacks appropriate HEP Short Term Goal (STG) Pt will be educated in HEP: thoracic mob ex's and abdominal stretching. 02/26/24: HEP issued: Open book (T/S rot) & ANGELO/Sphinx ( abdominal stretching). STG Duration (02/26/24: MET GOAL) Logistics Assistant Goal (LTG) Pt will be independent in a self care HEP of PF/hip stretches and self STM. 12/26/23: HEP: Kegels: focus on long hold and relaxation. 02/26/24: Pt encouraged to do walking or more ex prior and during period to improve PF circulation. 03/12/24: HEP: Supine Piriformis stretch (2 types) and in sitting, SL hip AD stretch, ANGELO stretch, Iliopsoas stretch (asa test position) and standing Ilopsoas stretch. 04/09/24: added cat/cow, thoracic flexion over tball, wall posture ribcage over pelvis. LTG Duration 11 wks-05/14/24 (07/19/24: MET GOAL: Pt doing her HEP & happy w/status) Assessment Summary Assessment Pt is a 38 yo female with lower abdominal and PF pressure pain, possible pelvic congestion. + response to manual therapy. Improved ability to breath after manual abdominal decompression and mild response to MFR to lateral trunk and diaphragm release & urachus. Pt just ending on her period. Physical Therapy Plan Discharge Physical Therapy Discharge Comments Per phone conversation the pt feels she is doing good and has been doing her home exercise program and hasn't noticed any pelvic heaviness like she initially had. The pt understands a new referral would be needed for physical therapy in the future. Thank you for your referral.
== END 2024-07-30 10:03 | disposition home or self-care (01) ==
LOC: PHYS 10:30
PROVIDERS: Family Provider Student in an Organized Health Care Education/Training Program; PCP Student in an Organized Health Care Education/Training Program; Referring Provider Student in an Organized Health Care Education/Training Program; Visit Provider Student in an Organized Health Care Education/Training Program
DX: N94.89 Other specified conditions associated with female genital organs and menstrual cycle (principal)
CPT/HCPCS: 97110; 97112; 97140; 97162; 97535

== ENCOUNTER 2024-04-18 17:50 | Emergency (ER) | payer OTHER, SELFPAY ==
[2024-04-18] VITALS (7 sets, daily range): BP systolic 96–125; BP diastolic 68–81; PULSE 80–125; RESP 6–18; TEMP 36.7–37.1; O2SAT 97–100; BMI 19.3
--- NOTE | 2024-04-18 18:13 | DI.RAD.S_ITS ---
PROCEDURE: XR CHEST 1V INDICATIONS: Shortness of breath TECHNIQUE: One view of the chest was acquired. COMPARISON: None. FINDINGS: Surgical changes and devices: None. Lungs and pleura: Lungs are clear. No pleural effusions or pneumothorax. Mediastinum: Mediastinal contours appear normal. Heart size is normal. Bones and chest wall: No suspicious bony lesions. Overlying soft tissues appear unremarkable. IMPRESSION: No acute cardiopulmonary abnormality is seen. Approved by: Mica Garcia M.D.,Ph.D. on 04/18/2024 at 18:15
[2024-04-18 18:35] LABS: Add Manual Diff / Slide Review NO; Basophils Absolute Auto 100 /uL (0-100); Basophils Percent Auto 0.7 % (0-2); Eosinophils Absolute Auto 100 /uL (0-450); Eosinophils Percent Auto 1.1 % (2-4); Hematocrit 39.4 % (36-46); Hemoglobin 13.2 g/dL (12.0-16.0); Lymphocytes Absolute Auto 2000 /uL (1100-4500); Lymphocytes Percent Auto 25.4 % (25-40); Mean Corpuscular HGB Conc 33.4 % (30-36); Mean Corpuscular Hemoglobin 27.3 PG (26-34); Mean Corpuscular Volume 81.9 fL (80-100); Monocytes Absolute Auto 600 /uL (0-900); Monocytes Percent Auto 7.6 % (3-14); Neutrophils Absolute Auto 5100 /uL (1500-7000); Neutrophils Percent Auto 65.2 % (50-75); Platelet Count 295 X10^3/uL (150-400); Red Blood Cell Count 4.82 X10^6/uL (4.0-5.2); Red Cell Distribution Width 14.3 % (11.6-14.8); White Blood Cell Count 7.7 X10^3/uL (4.5-11.0)
[2024-04-18 18:36] LABS: INR 1.1 (0.9-1.3); Prothrombin Time 12.7 SECONDS (9.4-12.5)
[2024-04-18 18:42] LABS: Alanine Aminotransferase 18 IU/L (<35); Albumin 4.7 g/dL (3.5-5.0); Albumin Globulin Ratio 1.6 (1.0-2.8); Alkaline Phosphatase 74 U/L (38-126); Aspartate Aminotransferase 23 IU/L (14-36); BUN Creatinine Ratio 15.6 (6-22); Bilirubin Total 0.8 mg/dL (0.2-1.3); Blood Urea Nitrogen 10 mg/dL (7-17); Calcium 9.4 mg/dL (8.4-10.2); Carbon Dioxide 23 mmol/L (22-32); Chloride 107 mmol/L (98-107); Estimated Glomerular Filt Rate > 60 mL/min (>60); Glucose 105 mg/dL (70-100); HEMOLYSIS < 15 (0-50); Potassium 3.6 mmol/L (3.4-5.1); Sodium 139 mmol/L (137-145); Total Protein 7.7 g/dL (6.3-8.2)
[2024-04-18 18:43] LABS: Lactate (Lactic Acid) 0.8 mmol/L (0.7-2.1)
[2024-04-18 18:54] LABS: NT-proBNP (BNP-Adult 18+) 87 pg/mL (<125); Troponin I < 0.012 ng/mL (0.01-0.034)
[2024-04-18 19:57] LABS: D Dimer 354 ng/ml (<500)
--- NOTE | 2024-04-18 22:27 | PC.NURSE ---
per pt respiratory therapy evaluated the pt's lungs during EKG and said pt sounded all clear
--- NOTE | 2024-04-18 23:50 | ED_ITS ---
HPI - SOB/Dyspnea General Chief Complaint: Shortness of Breath/Dyspnea Stated Complaint: SOB GI pain Time Seen by Provider: 04/18/24 18:45 Source: patient Mode of arrival: Ambulatory Limitations: no limitations History of Present Illness HPI Narrative: 38-year-old female history of asthma who complains of pain shortness of breath and epigastric pain since Friday. Patient states symptoms started Friday, she felt a little short of breath like she could not really take a full breath, she states it has not painful but almost more like a pressure sensation she describes it as epigastric does not radiate to her back does not go elsewhere she describes as being a little bit and a band across her upper abdomen. She states she has been belching a, she did try Tums which was a little bit helpful. She states if she is upright it is more uncomfortable if she leans back or for words that is seems to relieve little bit of symptoms. No syncope, no chest pain or pressure, no nausea or vomiting. She states she has had a little bit of loose stools but no black or blood, no urinary symptoms. No swelling in extremities. She does have a history of asthma but does not use inhalers often she states this does not feel like when her asthma flares. She has had migraines in the past. She has not on any prescription medications. She had a prior kidney stone removed in 1992 and had a cervical conization in 2008. Patient states allergies to penicillin, cephalosporins and pertussis. No tobacco, drinks 1 alcoholic drinks monthly, uses CBD occasionally but no other recreational drugs. Related Data Allergies Allergy/AdvReac Type Severity Reaction Status Date / Time Cephalosporins Allergy Verified 04/18/24 18:06 penicillin V Allergy Verified 04/18/24 18:06 Pertussis Vaccines Allergy Verified 04/18/24 18:06 Review of Systems Review of Systems ROS Unobtainable: All systems reviewed & are unremarkable except as noted in HPI and below Patient History Social History Smoking Status: Never smoker Smoking Status: Never smoker alcohol intake frequency: other Substance Use Type: does not use Exam Narrative Exam Narrative: GENERAL: Alert and oriented x three, female in mild distress. HEENT: Head normocephalic, atraumatic, EOMI, pupils reactive, face symmetric, moist mucous membranes NECK: Supple, full range of motion CARDIOVASCULAR: Slightly tachycardic but regular rate and rhythm without murmurs, rubs or gallops. No JVD. No edema bilateral lower extremities. RESPIRATORY: Breath sounds equal bilaterally, no wheezes rales or rhonchi. ABDOMEN: Soft, positive for mild epigastric and right upper quadrant tenderness. Normoactive bowel sounds all 4 quadrants. No guarding or rebound, rigidity, no mass, nondistended. No pulsatile mass or bruit. : No CVA tenderness EXTREMITIES: Normal range of motion, no clubbing or edema. Neurovascularly intact NEUROLOGICAL: Cranial nerves II through XII grossly intact. Moving all extremities SKIN: Warm, dry, no petechiae, no rashes or lesions. Initial Vital Signs Initial Vital Signs: Vital Signs Temperature 98.7 F 04/18/24 18:06 Pulse Rate 125 H 04/18/24 18:06 Respiratory Rate 18 04/18/24 18:06 Blood Pressure 125/71 04/18/24 18:06 Pulse Oximetry 100 04/18/24 18:06 Oxygen Delivery Method Room Air 04/18/24 18:06 Course Orders Ordered: ED Orders 04/19/24 00:28 US abdomen limited Stat Discontinued Medications Sodium Chloride (Normal Saline 0.9%) 1,000 mls @ 1,000 mls/hr IV BOLUS ONE Stop: 04/19/24 01:02 Last Infusion: 04/19/24 01:14 Dose: Infused Documented By: Admin: 04/19/24 00:14 Dose: 1,000 mls/hr Documented By: GEORGES Pantoprazole Sodium (Pantoprazole 40 Mg Vial) 40 mg IV NOW ONE Stop: 04/19/24 00:04 Last Admin: 04/19/24 00:14 Dose: 40 mg Documented By: GEORGES Vital Signs Vital signs: Vital Signs - 8 hr 04/18/24 21:54 04/18/24 22:07 04/18/24 22:07 Temperature 98.0 F Pulse Rate 80 114 H Respiratory Rate 18 Blood Pressure 96/68 121/81 Pulse Oximetry 100 Oxygen Delivery Method 04/18/24 22:30 04/18/24 23:00 04/18/24 23:30 Temperature Pulse Rate 105 H 96 H 99 H Respiratory Rate 9 L 6 L 7 L Blood Pressure Pulse Oximetry 99 98 97 Oxygen Delivery Method 04/19/24 00:00 04/19/24 00:30 04/19/24 01:00 Temperature Pulse Rate 100 H 83 89 Respiratory Rate 14 18 21 Blood Pressure Pulse Oximetry 99 99 100 Oxygen Delivery Method 04/19/24 01:11 04/19/24 02:45 04/19/24 02:47 Temperature Pulse Rate 66 Respiratory Rate Blood Pressure 100/65 Pulse Oximetry 99 99 Oxygen Delivery Method Room Air MDM - SOB/Dyspnea Lab Data 04/18/24 18:20 04/18/24 18:20 Labs: Lab Results 04/18/24 Range/Units 18:20 WBC 7.7 (4.5-11.0) X10^3/uL RBC 4.82 (4.0-5.2) X10^6/uL Hgb 13.2 (12.0-16.0) g/dL Hct 39.4 (36-46) % MCV 81.9 (80-100) fL MCH 27.3 (26-34) PG MCHC 33.4 (30-36) % RDW 14.3 (11.6-14.8) % Plt Count 295 (150-400) X10^3/uL Neut % (Auto) 65.2 (50-75) % Lymph % (Auto) 25.4 (25-40) % Robertson % (Auto) 7.6 (3-14) % Eos % (Auto) 1.1 L (2-4) % Baso % (Auto) 0.7 (0-2) % Neut # (Auto) 5100 (5337-7147) /uL Lymph # (Auto) 2000 (7768-9760) /uL Robertson # (Auto) 600 (0-900) /uL Eos # (Auto) 100 (0-450) /uL Baso # (Auto) 100 (0-100) /uL PT 12.7 H (9.4-12.5) SECONDS INR 1.1 (0.9-1.3) D-Dimer 354 (<500) ng/ml Sodium 139 (137-145) mmol/L Potassium 3.6 (3.4-5.1) mmol/L Chloride 107 (98-107) mmol/L Carbon Dioxide 23 (22-32) mmol/L BUN 10 (7-17) mg/dL Creatinine 0.64 (0.52-1.04) mg/dL Estimated GFR > 60 (>60) mL/min BUN/Creatinine Ratio 15.6 (6-22) Glucose 105 H (70-100) mg/dL Lactate 0.8 (0.7-2.1) mmol/L Calcium 9.4 (8.4-10.2) mg/dL Total Bilirubin 0.8 (0.2-1.3) mg/dL AST 23 (14-36) IU/L ALT 18 (<35) IU/L Alkaline Phosphatase 74 (38-126) U/L Troponin I < 0.012 (0.01-0.034) ng/mL NT-Pro-B Natriuret Pep 87 (<125) pg/mL Total Protein 7.7 (6.3-8.2) g/dL Albumin 4.7 (3.5-5.0) g/dL Globulin 3.0 (1.7-4.1) g/dL Albumin/Globulin Ratio 1.6 (1.0-2.8) Imaging Data Chest x-ray: Radiologist's Impression: Close Chest X-Ray (Signed) Mica Garcia - 04/18/24 Launch?Image [address] [address] XRay Report Signed Patient: Jazlyn Carter MR#: [id number] : 1985 Acct:[id number] Age/Sex: 38 / F Date of Service: 04/18/24 Loc: ED Accession Number: [id number] Procedure: XR chest 1V Ordering Provider: Afua Galarza D.O. PROCEDURE: XR CHEST 1V INDICATIONS: Shortness of breath TECHNIQUE: One view of the chest was acquired. COMPARISON: None. FINDINGS: Surgical changes and devices: None. Lungs and pleura: Lungs are clear. No pleural effusions or pneumothorax. Mediastinum: Mediastinal contours appear normal. Heart size is normal. Bones and chest wall: No suspicious bony lesions. Overlying soft tissues appear unremarkable. IMPRESSION: No acute cardiopulmonary abnormality is seen. Approved by: Mica Garcia M.D.,Ph.D. on 04/18/2024 at 18:15 US - abdomen: Radiologist's Impression: [address] [address] Ultrasound Report Signed Patient: Jazlyn Carter MR#: [id number] : 1985 Acct:[id number] Age/Sex: 38 / F Date of Service: 04/19/24 Loc: ED Accession Number: [id number] Procedure: US abdomen limited Ordering Provider: Afua Galarza D.O. PROCEDURE: US ABDOMEN LIMITED INDICATIONS: RUq pressure TECHNIQUE: Real-time scanning was performed of the abdominal and retroperitoneal organs, with image documentation. COMPARISON: None. FINDINGS: Liver: Liver is enlarged and measures 18.6 cm in length. 8 x 7 x 6 mm echogenic structure is seen in right lobe of liver without internal vascularity. No other hepatic lesion is seen. Gallbladder: 3 mobile stones are noted within gallbladder lumen. There is sludge material seen within gallbladder lumen. Gallbladder wall measures up to 3.2 mm in thickness. No pericholecystic fluid or sonographic Leigh sign. Biliary ducts: Intrahepatic bile ducts are non-dilated. Extrahepatic bile duct caliber measures 2.3 mm. Normal is 6-7 mm or less in diameter, or 10 mm or less post-cholecystectomy. Pancreas: Visualized portions of the pancreas are sonographically normal. Miscellaneous: No free abdominal fluid. IMPRESSION: 1. Cholelithiasis without sonographic evidence of acute cholecystitis. 2. Mild hepatomegaly. Possible subcentimeter Hem angioma in right lobe of liver as above. 3. No biliary ductal dilatation. Dictated by: Papo Roe M.D. on 04/19/2024 at 1:28 Approved by: Papo Roe M.D. on 04/19/2024 at 1:29 ECG Data Attestation: I personally reviewed and interpreted this ECG as follows: Interpretation: Sinus tachycardia rate of 120 SC 168 QRS 84 QTC of 429. No acute ST changes appreciated, rightward axis. MDM Narrative Medical decision making narrative: This is a 30-year-old cognitive complaint of sensation of pressure that is epigastric in a band across her upper abdomen. She states she is felt like it is hard to take a deep breath but she is not felt when she is struggling to breathe. She states it does not feel like her asthma. She denies chest pain or pressure. She states not really painful just feels like a pressure in her belly. Patient has been belching a lot more than normal, no nausea or vomiting, she has a little bit of loose stools recently. She tried some Tums which was helpful. Patient was tachycardic upon arrival, not hypotensive afebrile, normal oxygenation. Has improved over time while being in the department without interventions but was still 105 on evaluation. Patient's labs show white count of 7.7 hemoglobin of 13 platelets of 295 INR 1.1 sodium 139 potassium of 3.6 chloride of 107 CO2 of 23 BUN of 10 creatinine 0.64 with a CO2 of 105, lactate less than 0.8, LFTs are negative troponins less than 0.12, D-dimer is negative range at 354. Chest x-ray shows no acute change. Patient has sinus tachycardia on EKG. On exam patient does have tenderness in the right upper quadrant, we will obtain right upper quadrant ultrasound patient was given some Protonix and a L fluids and on re-evaluation Ultrasound shows gallstones, wall 3.2 mm no pericholecystic fluid or sonographic Leigh's sign. There is sludge in the lumen. Mild hepatomegaly, possible hemangioma right lobe of liver. No biliary ductal dilation. On recheck patient states she feels significantly better. Vitals have continued to improve. Discussed findings with patient. Symptoms have resolved with fluids and Protonix. There might be a component of reflux so we will have her take 40 mg daily she is persistent symptoms but will also give referral to follow up with General surgery. She is felt appropriate for discharge but we did discuss return precautions. Discharge Plan Departure Patient Disposition: Home Clinical Impression: Gallstones, Hepatomegaly Instructions: DI for Gallstones Activity Restrictions/Additional Instructions: Your workup today shows gallstones which are likely the source of your discomfort, please follow up with General surgery. Contacts included below. Call to set up an appointment this week You also have a slightly enlarged liver and appears to be likely hemangioma. These are something you should be aware of follow but do not require intervention. You can take Tylenol up to a 1000 mg and/or ibuprofen up to 600 mg for pain. If you are having any reflux or similar symptoms you can take Pepcid 40 mg daily [id number].. Please return for fevers new or worsening abdominal back or flank pain, persistent vomiting, black or bloody stools or other new or concerning changes. Referrals: Celia Boudreaux MD [Primary Care Provider] - Rosalinda More MD [Physician] - Stand Alone Forms: Patient Portal/API
[2024-04-19] VITALS: PULSE 100; RESP 14; O2SAT 99
[2024-04-19] MEDS: SODIUM CHLORIDE 0.9% 1,000 ML 1000 ML IV (00:14)
[2024-04-19] MEDS: PANTOPRAZOLE 40 MG VIAL IV (00:14)
--- NOTE | 2024-04-19 00:28 | DI.US.S_ITS ---
PROCEDURE: US ABDOMEN LIMITED INDICATIONS: RUq pressure TECHNIQUE: Real-time scanning was performed of the abdominal and retroperitoneal organs, with image documentation. COMPARISON: None. FINDINGS: Liver: Liver is enlarged and measures 18.6 cm in length. 8 x 7 x 6 mm echogenic structure is seen in right lobe of liver without internal vascularity. No other hepatic lesion is seen. Gallbladder: 3 mobile stones are noted within gallbladder lumen. There is sludge material seen within gallbladder lumen. Gallbladder wall measures up to 3.2 mm in thickness. No pericholecystic fluid or sonographic Leigh sign. Biliary ducts: Intrahepatic bile ducts are non-dilated. Extrahepatic bile duct caliber measures 2.3 mm. Normal is 6-7 mm or less in diameter, or 10 mm or less post-cholecystectomy. Pancreas: Visualized portions of the pancreas are sonographically normal. Miscellaneous: No free abdominal fluid. IMPRESSION: 1. Cholelithiasis without sonographic evidence of acute cholecystitis. 2. Mild hepatomegaly. Possible subcentimeter Hem angioma in right lobe of liver as above. 3. No biliary ductal dilatation. Dictated by: Papo Roe M.D. on 04/19/2024 at 1:28 Approved by: Papo Roe M.D. on 04/19/2024 at 1:29
[2024-04-19 00:30] VITALS: PULSE 83; RESP 18; O2SAT 99
[2024-04-19 01:00] VITALS: PULSE 89; RESP 21; O2SAT 100
[2024-04-19 01:11] VITALS: O2SAT 99
[2024-04-19 02:45] VITALS: BP 100/65
[2024-04-19 02:47] VITALS: PULSE 66; O2SAT 99
== END 2024-04-19 02:49 | disposition home or self-care (01) ==
PROVIDERS: Emergency Provider Emergency Medicine; Family Provider Student in an Organized Health Care Education/Training Program; PCP Student in an Organized Health Care Education/Training Program
DX: K80.20 Calculus of gallbladder without cholecystitis without obstruction (principal); R16.0 Hepatomegaly, not elsewhere classified; R00.0 Tachycardia, unspecified
CPT/HCPCS: 36415; 71045; 76705; 80053; 83605; 83880; 84484; 85025; 85379; 85610; 93005; 96374; 99284; C9113

== ENCOUNTER → 2024-04-28 13:39 | Outpatient (CLI) | payer OTHER, SELFPAY ==
[2024-04-28 13:55] LABS: Add Manual Diff / Slide Review NO; Basophils Absolute Auto 0 /uL (0-100); Basophils Percent Auto 0.5 % (0-2); Eosinophils Absolute Auto 300 /uL (0-450); Eosinophils Percent Auto 3.8 % (2-4); Hematocrit 38.8 % (36-46); Hemoglobin 13.2 g/dL (12.0-16.0); Lymphocytes Absolute Auto 1900 /uL (1100-4500); Lymphocytes Percent Auto 21.9 % (25-40); Mean Corpuscular Hemoglobin 28.3 PG (26-34); Mean Corpuscular Volume 83.1 fL (80-100); Monocytes Absolute Auto 600 /uL (0-900); Monocytes Percent Auto 6.6 % (3-14); Neutrophils Absolute Auto 5900 /uL (1500-7000); Neutrophils Percent Auto 67.2 % (50-75); Platelet Count 287 X10^3/uL (150-400); Red Blood Cell Count 4.67 X10^6/uL (4.0-5.2); Red Cell Distribution Width 14.4 % (11.6-14.8); White Blood Cell Count 8.8 X10^3/uL (4.5-11.0)
[2024-04-28 14:18] LABS: Alanine Aminotransferase 20 IU/L (<35); Albumin 4.7 g/dL (3.5-5.0); Alkaline Phosphatase 62 U/L (38-126); Aspartate Aminotransferase 21 IU/L (14-36); BUN Creatinine Ratio 15.5 (6-22); Bilirubin Total 0.5 mg/dL (0.2-1.3); Blood Urea Nitrogen 9 mg/dL (7-17); Calcium 9.5 mg/dL (8.4-10.2); Carbon Dioxide 28 mmol/L (22-32); Chloride 105 mmol/L (98-107); Estimated Glomerular Filt Rate > 60 mL/min (>60); Globulin 2.4 g/dL (1.7-4.1); Glucose 96 mg/dL (70-100); HEMOLYSIS < 15 (0-50); Potassium 3.9 mmol/L (3.4-5.1); Sodium 139 mmol/L (137-145); Total Protein 7.1 g/dL (6.3-8.2)
== END ==
PROVIDERS: Family Provider Student in an Organized Health Care Education/Training Program; Referring Provider Surgery; Visit Provider Surgery
DX: K80.20 Calculus of gallbladder without cholecystitis without obstruction (principal)
CPT/HCPCS: 36415; 80053; 85025

== ENCOUNTER 2024-05-10 09:46 | Day surgery (SDC) | payer OTHER, SELFPAY ==
[2024-05-05 12:30] VITALS: BMI 19.4
[2024-05-10] VITALS (15 sets, daily range): BP systolic 97–115; BP diastolic 61–76; PULSE 105–132; RESP 9–21; TEMP 36.8–37.3; O2SAT 95–100; BMI 19.1
--- NOTE | 2024-05-10 | PATH_ITS ---
[facility] Accession Number: [id number] No. of containers..01 Tissue . 01 Material submitted: . gallbladder - GALLBLADDER . 01 Diagnosis: GALLBLADDER, CHOLECYSTECTOMY: Cholelithiasis. No evidence of neoplasm. SHERWIN 05/14/2024 1142 Local . 01 Electronically signed: . Leonel Dailey MD, PhD, Pathologist NPI- [id number] . 01 Gross description: . Received in formalin with two identifiers and gallbladder, is an intact gallbladder 8.4 x 2.9 x 2.7 cm with an unremarkable external surface. The cystic duct margin is inked blue, and no pericystic lymph node is identified. The lumen contains three yellow bosselated calculi measuring up to 1.5 cm in greatest dimension admixexd with dark green viscous bile. The mucosa is green and velvety with no yellow discoloration, polyps, or lesions identified. The moore average 0.2 cm thick. Track Laminating Machine Tender sections to include the cystic duct margin and full thickness sections are submitted in cassette A1. ([id number]) /SHERWIN 05/11/2024 0933 Local . 01 Pathologist provided ICD-10: K80.20 . 01 CPT . 184811 Specimen Comment: A courtesy copy of this report has been sent to [phone] Performed at: [address] [facility] [address], [place], [place] [id number] MD Geovany Herndon MD Phone: [phone]
[2024-05-10] MEDS: LACTATED RINGERS 1,000 ML 42 ML IV (10:44)
[2024-05-10] MEDS: ALBUTEROL 2.5 MG/3 ML NEB (ADULT) INH (10:44)
[2024-05-10] MEDS: ACETAMINOPHEN 325 MG TABLET 975 MG PO (10:44)
--- NOTE | 2024-05-10 10:45 | PM.PREOP ---
Pre-operative Note COVID-19 COVID-19 status: Not tested Interval Note History & Physical reviewed/Exam performed by Physician: Yes Changes to H&P: No ASA Class (for procedural sedation): II
[2024-05-10] MEDS: SCOPOLAMINE 1 PATCH TOP (10:50)
--- NOTE | 2024-05-10 11:10 | SUR.PREOP ---
Patient given Versed in Pre-op by anethesia provider. Placed patient on continuous pulse oximeter for monitoring.
[2024-05-10] MEDS: CLINDAMYCIN 900 MG/50 ML PIGGYBACK 50 MG IV (11:31)
[2024-05-10] MEDS: BUPIVACAINE 0.5% (PF) 30 ML, EPINEPHrine 0.15 MG INJ (12:05)
--- NOTE | 2024-05-10 12:18 | SUR.OPER ---
PROCEDURE DONE IN OR-2
--- NOTE | 2024-05-10 12:25 | PM.OP.1 ---
Operative Date/Time/Diagnoses Date of procedure: 05/10/24 Time of procedure: 12:25 Pre-op diagnosis: Cholelithiasis Post-op diagnosis: same Procedure & Clinicians Procedure: Laparoscopic cholecystectomy Same procedure as scheduled: Yes Surgeon: Alonso Serrato Anesthesia Type: General Operative Notes Procedure in detail: The patient was given preoperative clindamycin. The patient was brought to the operating room and placed on the table in the supine position. General endotracheal anesthesia was induced. The abdomen was prepped and draped. A time-out was performed. We made a 1 cm infraumbilical incision. We dissected down to the base of the umbilical stalk using cautery. We grasped the umbilical stalk with a Norbert clamp to elevate the abdominal wall. We scored the fascia in the midline with cautery. We pierced the peritoneum with a Peon clamp. The Lacey port was placed and the abdomen was insufflated to 15 mmHg. A 5 mm 30 degree laparoscopic was inserted. There was no evidence of any injury from the entry. Next, we placed 5 mm ports in the subxiphoid position and right upper quadrant at the midclavicular line and anterior axillary line. The patient was then positioned in reverse Trendelenburg and the table was tilted to the left. The gallbladder was grasped at the dome and retracted cephalad. There were some adhesions of visceral adipose tissue to the right lateral portion of the liver but they did not impede retraction or visualization so they were left intact. We then dissected the cystic structures with a combination of hook cautery and blunt dissection. We obtained a critical view. We placed clips on the cystic duct and artery and divided the cystic duct and artery sharply between the clips. The gallbladder was then dissected off the liver and placed in a specimen retrieval bag. We irrigated the right upper quadrant and all the aspirate returned clear. There was an enlarged lymph node or possibly a cystic structure noted along the distal pawan hepatis or potentially from the head of the pancreas. No other abnormalities were seen. We then removed the 5 mm ports under direct vision we removed the Lacey port. The gallbladder was removed through the umbilical incision. We then injected some local into the fascia and closed the fascia with 2 interrupted 0 Vicryl sutures. The skin incisions were closed with 4-0 Monocryl and Steri-Strips were applied. Band-Aids were applied over the Steri-Strips. EBL: 5 mL Specimen: Gallbladder and contents Post-operative Condition: stable Disposition: PACU
[2024-05-10] MEDS: ONDANSETRON 4 MG/2 ML INJ IV (12:49)
[2024-05-10] MEDS: HYDROMORPHONE 1 MG INJ IV ×2 (12:54→13:08)
--- NOTE | 2024-05-10 13:42 | SUR.PHASEI ---
Pt transferred to Phase II to [facility]. Pt HR [facility] 115-118. When more awake patient HR 115-126. Will cont to monitor HR in Phase II. Dr Evans OK for discharge to home with HR below 120. Pt to follow up with PCP if HR continues to remain elevated. Pt reports it is high when she is anxious at home. Denies anxiety at this time.
== END 2024-05-10 14:49 | disposition home or self-care (01) ==
PROVIDERS: Family Provider Student in an Organized Health Care Education/Training Program; Referring Provider Surgery; Visit Provider Surgery
PROC: 0FT44ZZ Resection of Gallbladder, Percutaneous Endoscopic Approach (ICD-10-PCS; CPT 47562; principal; 2024-05-10 11:45)
DX: K80.20 Calculus of gallbladder without cholecystitis without obstruction (principal)
CPT/HCPCS: 47562; 81025; J0171; J0330; J1100; J1170; J1885; J2250; J2405; J2704; J3010; J3490; J7613

== ENCOUNTER → 2025-06-21 06:55 | Outpatient (CLI) | payer OTHER, SELFPAY ==
--- NOTE | 2025-06-21 06:56 | DI.US.S_ITS ---
PROCEDURE: US ABDOMEN LIMITED INDICATIONS: ACUTE RIGHT UPPER QUADRANT PAIN; POST CHOLECYSTECTOMY TECHNIQUE: Real-time focused scanning was performed of the abdomen, with image documentation. COMPARISON: [facility], US, US ABDOMEN LIMITED, 04/19/2024, 0:35. Outside Facility, , CT ABDOMEN/PELVIS WITH CONTRAST, 05/24/2024, 8:10. FINDINGS: Liver measures 14 cm. Posterior right lobe possible hemangioma measures 0.7 cm. Gallbladder is absent. CBD measures 2 mm. Pancreas is unremarkable. IMPRESSION: Gallbladder is absent. Nondilated CBD at 2 mm. Hyperechoic posterior right lobe liver lesion incidentally noted measuring 0.7 cm, most commonly hemangioma, assuming patient does not have another malignancy history. Dictated by: Apolinar Hammonds M.D. on 06/21/2025 at 8:30 Approved by: Apolinar Hammonds M.D. on 06/21/2025 at 8:32
== END ==
PROVIDERS: Family Provider Student in an Organized Health Care Education/Training Program; Referring Provider Obstetrics & Gynecology; Visit Provider Emergency Medicine
DX: K76.9 Liver disease, unspecified (principal); R10.11 Right upper quadrant pain; Z90.49 Acquired absence of other specified parts of digestive tract
CPT/HCPCS: 76705

== ENCOUNTER → 2025-08-08 09:22 | Outpatient (CLI) | payer OTHER, SELFPAY ==
--- NOTE | 2025-08-08 09:23 | DI.US.S_ITS ---
MM diagnostic mammo BI, US breast LT limited: 08/08/2025 BI-RADS: 1 CLINICAL: 39-year old female for bilateral diagnostic mammogram and left diagnostic breast ultrasound. Tyrer-Cuzick lifetime risk of 12.0%. No personal or first- degree family history of breast cancer. The patient reports a palpable abnormality (more than 2 years) in the left breast, previously evaluated on outside imaging 12/28/2021. PRIOR EXAMS 12/28/2021. MAMMOGRAPHY TECHNIQUE: 2D and 3D (tomosynthesis) digital mammographic views obtained, with additional images as needed for full coverage. Current study was also evaluated with a Computer Aided Detection (CAD) system. ULTRASOUND TECHNIQUE Real-time martínez scale imaging of the area of clinical interest was performed with image documentation. TARGETED Left Breast Ultrasound: Real-time ultrasound exam was performed focused to area of clinical and/or imaging concern. DENSITY C. The breasts are heterogeneously dense, which may obscure small masses. MAMMOGRAPHY FINDINGS Right: No suspicious mass, asymmetry, microcalcification, or other abnormality seen. Left (finding-1): Upper Outer Quadrant, Posterior depth: A skin marker was placed in the area of concern, and no mammographic abnormalities are identified or to account for concern by the patient of a palpable lump. No suspicious mass, asymmetry, microcalcification, or other abnormality seen. ULTRASOUND FINDINGS Left (finding-1): Upper Outer at 1:00, 7 cm from nipple: Underlying the surface marker, there is no sonographic abnormality to account for concern by the patient of a palpable lump. IMPRESSION: * No evidence of malignancy. RECOMMENDATIONS Left * Clinical follow-up is recommended, and further management of palpable abnormalities or other focal signs or symptoms should be based on the results of clinical evaluation. If palpable abnormality or other concerning symptom persists or progresses, further clinical evaluation should be considered. Bilateral * Annual screening mammography. COMMENTS: Findings and recommendations were conveyed to the patient during today's evaluation. OVERALL ASSESSMENT CATEGORY BI-RADS-1: Negative. The [employer] recommends annual screening mammography beginning at age 40 for women with average risk of breast cancer. ELECTRONICALLY SIGNED: Bijal Park M.D. on 08/08/2025 at 10:52:05 AM PT Interpreting Station ID: [id number]
== END ==
PROVIDERS: Family Provider Student in an Organized Health Care Education/Training Program; PCP Family Medicine; Referring Provider Family Medicine; Visit Provider Family Medicine
DX: N63.20 Unspecified lump in the left breast, unspecified quadrant (principal); R92.333 Mammographic heterogeneous density, bilateral breasts
CPT/HCPCS: 76642; 77066; G0279

== ENCOUNTER → 2025-09-06 08:05 | Outpatient (CLI) | payer OTHER, SELFPAY | PROVIDERS: PCP Family Medicine; Referring Provider Family Medicine; Visit Provider Family Medicine | DX: J45.20 Mild intermittent asthma, uncomplicated (principal) | CPT/HCPCS: 94060; 94726; 94729 ==

== ENCOUNTER 2025-09-09 07:40 | Day surgery (SDC) | payer OTHER, SELFPAY ==
--- NOTE | 2025-09-09 | PATH_ITS ---
[facility] Accession Number: [id number] No. of containers..03 Tissue . 01 Material submitted: . PART A: duodenum - DUODENUM PART B: stomach - ANTRUM PART C: stomach - FUNDUS . 01 Diagnosis: A. DUODENUM: Duodenal mucosa with no diagnostic abnormality. Negative for active inflammation, features of sprue, dysplasia, or malignancy. . B. ANTRUM: Gastric mucosa with mild chronic inflammation. No Helicobacter pylori organisms identified on immunohistochemical evaluation. No intestinal metaplasia, dysplasia, or malignancy. . C. FUNDUS: Gastric mucosa with mild chronic inflammation. No Helicobacter pylori organisms identified on immunohistochemical evaluation. No intestinal metaplasia, dysplasia, or malignancy. [facility] 09/26/2025 1650 Local . 01 Electronically signed: . Brit Cross MD, Pathologist NPI- [id number] . 01 Gross description: . Received are three formalin-filled containers each labeled with the patient's name. . A. In a container labeled duodenum, are two fragments of adair, soft tissue which range in size from 0.2 x 0.1 x 0.1 cm to 0.3 x 0.3 x 0.2 cm. All fragments are totally submitted in cassette A1. B. In a container labeled antrum, are three fragments of adair, soft tissue which range in size from 0.1 x 0.1 x 0.1 cm to 0.3 x 0.3 x 0.3 cm. All fragments are totally submitted in cassette B1. C. In a container labeled fundus, are two fragments of adair, soft tissue which range in size from 0.2 x 0.2 x 0.2 cm to 0.3 x 0.3 x 0.2 cm. All fragments are totally submitted in cassette C1. (DC:[id number]) /SHERWIN 09/19/2025 2248 Local . 01 Microscopic: . B. An immunohistochemical stain was performed to evaluate for Helicobacter organisms and is negative. The control stain showed appropriate reactivity. . C. An immunohistochemical stain was performed to evaluate for Helicobacter organisms and is negative. The control stain showed appropriate reactivity. . * This test was developed and the performance characteristics were validated by [employer]. It has not been cleared or approved by the [place]. Food and Drug Administration. . 01 Pathologist provided ICD-10: K29.70 . 01 CPT . 868048, 177345, 379712, G31615 Specimen Comment: A courtesy copy of this report has been sent to [phone] Performed at: [address] [id number] MD Geovany Herndon MD Phone: [phone]
[2025-09-09 07:59] VITALS: BP 127/78; PULSE 101; RESP 16; TEMP 36.7; O2SAT 97
[2025-09-09] MEDS: LACTATED RINGERS 1,000 ML 42 ML IV (08:06)
--- NOTE | 2025-09-09 08:42 | PM.PREOP ---
Pre-operative Note COVID-19 COVID-19 status: Not tested Interval Note History & Physical reviewed/Exam performed by Physician: Yes Changes to H&P: No ASA Class (for procedural sedation): I
--- NOTE | 2025-09-09 09:08 | P.OP.EGD_ITS ---
Operative Date/Time/Diagnoses Date of procedure: 09/09/25 Time of procedure: 09:08 Pre-op diagnosis: Abdominal pain Post-op diagnosis: same Procedure & Clinicians Study performed: Esophagogastroduodenoscopy Same procedure(s) as scheduled: Yes Surgeon: Alonso Serrato Anesthesia Type: MAC +/- Procedure Notes Procedure in detail: Surgeon: Alonso Serrato MD Anesthesia: Joana Daniel [employer] COORDINATOR A timeout was performed. A bite blocked was placed. The patient was positioned in the left lateral decubitus position. Anesthesia was administered. The endoscope was inserted through the bite block and passed through the esophagus and stomach and into the duodenum. The duodenal mucosa appeared normal. Random biopsies were taken from the duodenal mucosa with the cold forceps. The scope was withdrawn into the stomach. No abnormalities were seen. Random biopsies were taken with the cold forceps from the antrum. The scope was retroflexed and some punctate bleeders were noted in the fundus and random biopsies were taken with the cold forceps. The scope was withdrawn into the esophagus and no abnormalities seen. The remainder of the esophagus was normal. The scope was withdrawn. The patient was awakened and brought to recovery. Sedation time: 9 minutes Findings: Grossly normal EGD Post-procedure Disposition: PACU
[2025-09-09 09:09] VITALS: BP 97/69; PULSE 97; RESP 16; TEMP 36.2; O2SAT 98
[2025-09-09 09:14] VITALS: BP 101/69; PULSE 94; RESP 16; O2SAT 99
[2025-09-09 09:20] VITALS: BP 108/75; PULSE 89; RESP 16; O2SAT 100
[2025-09-09 09:36] VITALS: BP 112/60; PULSE 78; RESP 16; O2SAT 98
== END 2025-09-09 09:52 | disposition home or self-care (01) ==
PROVIDERS: PCP Family Medicine; Referring Provider Surgery; Visit Provider Surgery
PROC: 0DJ08ZZ Inspection of Upper Intestinal Tract, Via Natural or Artificial Opening Endoscopic (ICD-10-PCS; CPT 43239; principal; 2025-09-09 08:45)
DX: R10.11 Right upper quadrant pain (principal); R13.10 Dysphagia, unspecified; K29.50 Unspecified chronic gastritis without bleeding
CPT/HCPCS: 43239; J2704; J7120